=== PATIENT | male | born 1930 | race Caucasian/White ===

== ENCOUNTER → 2016-12-03 | Outpatient (CLI) | payer MEDICARE ==
[~2016-12-03] MED LIST: ACET325T14 PO; AMIO100T4 PO; AMIO200T PO; ASPI-621 PO; ASPI-770 NG; ATOR10TA PO; CLOP75TA22 PO; DUTA0.5C PO; ENOX60SY4 SQ; FINA5TAB4 PO; FURO-93 PO; FURO20TA3 PO; GADOBUTROL 7.5 MMOL/7.5 ML VIAL ONE; IPRA3AMP IPPB; LEVO750T26 PO; LISI-167 PO; LISI5TAB7 PO; METH1TAB21 PO; METO-93 PO; METO25TA35 PO; NITR0.4T SL; NITR0.4T8 SL; OMEP-110 PO; PANT20TA2 PO; POTA20PA PO; SILO4CAP PO; SIMV40TA PO; SIMV40TA3 PO; TICA90TA PO; WARF5TAB7 PO-COUM
== END | disposition home or self-care (01) ==
LOC: CFH 08:10
PROVIDERS: ATTEND Registered Nurse
DX: H81.12 Benign paroxysmal vertigo, left ear (principal); G93.89 Other specified disorders of brain
CPT/HCPCS: 70553; A9585

== ENCOUNTER 2016-12-31 05:45 | Observation (INO) | payer MEDICARE ==
[2016-12-30 13:31] VITALS: BP 119/68
[2016-12-30 14:22] LABS: BLOOD UREA NITROGEN 36 mg/dL (7-18)
[2016-12-30 14:28] LABS: ASPARTATE AMINO TRANSFERASE 10 U/L (15-37)
[~2016-12-31] VITALS: Ht 172.7 cm; Wt 77.2 kg
[~2016-12-31 05:45] MED LIST changes: -GADOBUTROL 7.5 MMOL/7.5 ML VIAL ONE
[2016-12-31] MEDS ORDERED: SODIUM CHLORIDE 0.9% 1,000 ML IV SCH (06:46)
[2016-12-31] MEDS ORDERED: LIDOCAINE 2%, 20ML ONE ×2 (07:31)
[2016-12-31] MEDS ORDERED: FENTANYL PF 100 MCG/2ML ONE (07:31)
[2016-12-31] MEDS ORDERED: MIDAZOLAM 1 MG/ML, 5ML ONE (07:31)
[2016-12-31] MEDS ORDERED: CEFAZOLIN PMX 1GM/50ML 50 ML ONE (07:32)
[2016-12-31] MEDS ORDERED: HYDROcodone/APAP 5/325 TABLET PO PRN (08:30)
[2016-12-31] MEDS: NITROGLYCERIN 0.4 MG BOTTLE (25 TABS) SL SCH (08:30)
[2016-12-31] MEDS ORDERED: ZOLPIDEM 5MG TABLET PO PRN (08:30)
[2016-12-31] MEDS: FINASTERIDE 5 MG TABLET PO SCH (09:00)
[2016-12-31] MEDS: LISINOPRIL 5 MG TABLET PO SCH (09:00)
[2016-12-31] MEDS: TAMSULOSIN 0.4 MG CAP.ER.24H PO SCH (09:00)
[2016-12-31] MEDS: SODIUM CHLORIDE FLUSH 10ML SYR IVF SCH ×2 (09:00→20:51)
[2016-12-31] MEDS: FUROSEMIDE 20 MG TABLET PO SCH (09:00)
[2016-12-31] MEDS: DUTASTERIDE 0.5 MG CAPSULE PO SCH (09:00)
[2016-12-31] MEDS: METHENAMINE HIPPURATE 1 GM TABLET PO SCH ×2 (09:00→20:51)
[2016-12-31] MEDS: AMIODARONE 200 MG TABLET PO SCH (09:00)
[2016-12-31] MEDS: OMEPRAZOLE 20 MG CAPSULE.DR PO SCH (09:00)
[2016-12-31] MEDS: TICAGRELOR 90 MG TABLET PO SCH (09:00)
[2016-12-31] MEDS: METOPROLOL SUCCINATE 50 MG TAB.ER.24H PO SCH (09:00)
[2016-12-31] MEDS: ASPIRIN 81 MG TABLET EC PO SCH (10:58)
[2016-12-31 12:15] VITALS: BP 119/71
[2016-12-31] MEDS: CEFAZOLIN PMX 1GM/50ML 50 ML IVPB SCH ×2 (15:40→23:41)
[2016-12-31 19:08] VITALS: BP 101/53
[2016-12-31] MEDS ORDERED: ATORVASTATIN 10 MG TABLET PO SCH (21:00)
[2017-01-01 01:48] VITALS: BP 114/68
[2017-01-01 07:14] VITALS: BP 103/60
[2017-01-01] MEDS ORDERED: AMIO200T42 PO (08:24)
[2017-01-01] MEDS: METOPROLOL SUCCINATE 50 MG TAB.ER.24H PO SCH (08:32)
[2017-01-01] MEDS: AMIODARONE 200 MG TABLET PO SCH (08:33)
[2017-01-01] MEDS: TICAGRELOR 90 MG TABLET PO SCH (08:33)
[2017-01-01] MEDS: ASPIRIN 81 MG TABLET EC PO SCH (08:33)
[2017-01-01] MEDS: FINASTERIDE 5 MG TABLET PO SCH (08:33)
[2017-01-01] MEDS: DUTASTERIDE 0.5 MG CAPSULE PO SCH (08:33)
[2017-01-01] MEDS: TAMSULOSIN 0.4 MG CAP.ER.24H PO SCH (08:34)
[2017-01-01] MEDS: OMEPRAZOLE 20 MG CAPSULE.DR PO SCH (08:34)
[2017-01-01] MEDS: LISINOPRIL 5 MG TABLET PO SCH (08:34)
[2017-01-01] MEDS: FUROSEMIDE 20 MG TABLET PO SCH (08:37)
[2017-01-01] MEDS: SODIUM CHLORIDE FLUSH 10ML SYR IVF SCH (08:37)
[2017-01-01] MEDS: NITROGLYCERIN 0.4 MG BOTTLE (25 TABS) SL SCH (08:38)
[2017-01-01 08:47] VITALS: BP 105/65
[2017-01-01] MEDS: METHENAMINE HIPPURATE 1 GM TABLET PO SCH (09:02)
== END 2017-01-01 10:50 | disposition home or self-care (01) ==
LOC: CACL 05:45 → ORIP 08:30 → 5SO 08:55 → DCLOUNGE 01-01 10:27
PROVIDERS: ADMIT Internal Medicine Cardiovascular Disease; ATTEND Internal Medicine Cardiovascular Disease
DX: I49.5 Sick sinus syndrome (principal); I48.91 Unspecified atrial fibrillation; I25.10 Atherosclerotic heart disease of native coronary artery without angina pectoris; I11.0 Hypertensive heart disease with heart failure; I50.9 Heart failure, unspecified; Z87.891 Personal history of nicotine dependence
CPT/HCPCS: 33208; 36415; 71010; 71020; 80053; 83880; 85025; 85610; 85730; 93005; 96365; 96375; 99152; C1779; C1785; C1892; G0378; J0690; J2250; J3010; J3490

== ENCOUNTER → 2017-06-17 | Outpatient (CLI) | payer MEDICARE ==
[~2017-06-17] MED LIST changes: +AMIO200T42 PO; +AMIO400T4 PO; -CLOP75TA22 PO; +CLOP75TA52 PO; +METO25TA91 PO; +NITR0.4T28 SL; -NITR0.4T8 SL; +POTA10TA5 PO; +TAMS0.4C2 PO
[2017-06-17 11:17] LABS: HEMATOCRIT 44.5 % (39.2-51.8); HEMOGLOBIN 14.6 g/dL (13.7-18.0); WHITE BLOOD COUNT 11.9 x10^3/uL (3.4-10)
[2017-06-17 11:31] LABS: BLOOD UREA NITROGEN 28 mg/dL (7-18)
[2017-06-17 11:35] LABS: ASPARTATE AMINO TRANSFERASE 14 U/L (15-37)
== END | disposition home or self-care (01) ==
LOC: STAR 10:03
PROVIDERS: ATTEND Urology
DX: Z01.818 Encounter for other preprocedural examination (principal); R94.31 Abnormal electrocardiogram [ECG] [EKG]; C67.9 Malignant neoplasm of bladder, unspecified; N52.01 Erectile dysfunction due to arterial insufficiency; I10 Essential (primary) hypertension; Z85.46 Personal history of malignant neoplasm of prostate
CPT/HCPCS: 36415; 80053; 81003; 85025; 87086; 93005

== ENCOUNTER → 2017-07-01 | Day surgery (SDC) | payer MEDICARE ==
[~2017-07-01] VITALS: Ht 172.7 cm; Wt 78.0 kg
[2017-07-01 10:06] VITALS: BP 110/76
== END ==
LOC: OUT 09:34
PROVIDERS: ATTEND Urology
DX: Z02.9 Encounter for administrative examinations, unspecified (principal)

== ENCOUNTER 2017-08-10 01:31 | Inpatient (IN) | payer MEDICARE ==
[~2017-08-10] VITALS: Ht 172.7 cm; Wt 78.6 kg
[2017-08-10 02:26] LABS: BASOPHILS # (AUTO) 0.01 x10^3/uL (0-0.1); BASOPHILS % (AUTO) 0 % (0-1); EOSINOPHILS # (AUTO) 0.18 x10^3/uL (0-0.4); EOSINOPHILS % (AUTO) 2 % (1-7); LYMPHOCYTES # (AUTO) 1.73 x10^3/uL (1-3.4); LYMPHOCYTES % (AUTO) 17 % (22-44); MD NO; MEAN CORPUSCULAR HEMOGLOBIN 30.8 pg (27.5-34.5); MEAN CORPUSCULAR HGB CONC 33.6 g/dL (33.2-36.2); MEAN CORPUSCULAR VOLUME 91.7 fL (81-97); MEAN PLATELET VOLUME 9.4 fL (7.4-10.4); MONOCYTES # (AUTO) 1.12 x10^3/uL (0.2-0.8); MONOCYTES % (AUTO) 11 % (2-9); NEUTROPHILS # (AUTO) 7.38 x10^3/uL (1.8-6.8); NEUTROPHILS % (AUTO) 71 % (42-75); PLATELET COUNT 225 x10^3/uL (130-400); RED CELL DISTRIBUTION WIDTH 13.3 % (9.4-14.8)
[2017-08-10] MEDS ORDERED: ASPIRIN 81 MG TABLET CHEW ONE (02:26)
[2017-08-10] MEDS ORDERED: ASPIRIN 81 MG TABLET CHEW PO ONE (02:30)
[2017-08-10 02:34] LABS: INTERNATIONAL NORMALIZED RATIO 0.98 (0.93-1.1); PROTHROMBIN TIME 10.1 Seconds (9.6-11.5)
[2017-08-10 02:39] LABS: ALBUMIN 3.3 g/dL (3.4-5.0); ANION GAP 7 mmol/L (5-15); CALCIUM 8.8 mg/dL (8.5-10.1); CHLORIDE 110 mmol/L (98-107); CREATININE 1.53 mg/dL (0.7-1.3)
[2017-08-10 02:43] LABS: TROPONIN I < 0.015 ng/mL (0.000-0.045)
[2017-08-10] MEDS ORDERED: SODIUM CHLORIDE 0.9% 1,000 ML IV SCH ×2 (03:58→14:40)
[2017-08-10] MEDS ORDERED: ONDANSETRON 2MG/ML, 2ML IVPush PRN (04:00)
[2017-08-10] MEDS ORDERED: morphine SULFATE 10 MG/ML, 1ML IVPush PRN (04:00)
[2017-08-10] MEDS ORDERED: NITROGLYCERIN 0.4 MG BOTTLE (25 TABS) SL PRN (04:00)
[2017-08-10] MEDS ORDERED: ACETAMINOPHEN 325 MG TABLET PO PRN (04:00)
[2017-08-10 04:18] VITALS: BP 146/87
[2017-08-10 05:23] VITALS: BP 134/73
[2017-08-10 07:52] VITALS: BP 134/77
[2017-08-10] MEDS: TICAGRELOR 90 MG TABLET PO SCH ×2 (08:02→23:24)
[2017-08-10] MEDS: FUROSEMIDE 20 MG TABLET PO SCH (08:03)
[2017-08-10] MEDS: AMIODARONE 200 MG TABLET PO SCH (08:03)
[2017-08-10] MEDS: POTASSIUM CHLORIDE 10 MEQ TABLET.ER PO SCH (08:03)
[2017-08-10] MEDS: TAMSULOSIN 0.4 MG CAP.ER.24H PO SCH (08:03)
[2017-08-10] MEDS: ASPIRIN 81 MG TABLET EC PO SCH (08:03)
[2017-08-10] MEDS: METOPROLOL SUCCINATE 25 MG TAB.ER.24H PO SCH (08:03)
[2017-08-10 08:10] LABS: TROPONIN I 0.019 ng/mL (0.000-0.045)
[2017-08-10] MEDS ORDERED: REGADENOSON 0.4 MG/5 ML SYRINGE ONE (08:38)
[2017-08-10 14:55] VITALS: BP 111/63
[2017-08-10 15:02] LABS: TROPONIN I < 0.015 ng/mL (0.000-0.045)
[2017-08-10 18:34] VITALS: BP 130/79
[2017-08-11 02:19] VITALS: BP 110/63
[2017-08-11 05:50] LABS: CHLORIDE 108 mmol/L (98-107)
[2017-08-11 06:05] LABS: ANION GAP 9 mmol/L (5-15); CALCIUM 8.8 mg/dL (8.5-10.1); CHOLESTEROL, TOTAL 138 mg/dL (140-239); CREATININE 1.47 mg/dL (0.7-1.3); HDL CHOL % 33 % (26-37); HDL CHOLESTEROL (DIRECT) 46 mg/dL (40-60); LDL CHOLESTEROL,CALCULATED 74 mg/dL (54-169); LDL/HDL RATIO 1.6 (0.5-3.0); TRIGLYCERIDES 91 mg/dL (50-200); VLDL CHOLESTEROL 18 mg/dL (0-25)
[2017-08-11 06:58] VITALS: BP 109/71
[2017-08-11] MEDS: ASPIRIN 81 MG TABLET EC PO SCH (09:23)
[2017-08-11] MEDS: POTASSIUM CHLORIDE 10 MEQ TABLET.ER PO SCH (09:23)
[2017-08-11] MEDS: FUROSEMIDE 20 MG TABLET PO SCH (09:23)
[2017-08-11] MEDS: TICAGRELOR 90 MG TABLET PO SCH ×2 (09:23→20:55)
[2017-08-11] MEDS: TAMSULOSIN 0.4 MG CAP.ER.24H PO SCH (09:24)
[2017-08-11] MEDS: AMIODARONE 200 MG TABLET PO SCH (09:24)
[2017-08-11] MEDS: METOPROLOL SUCCINATE 25 MG TAB.ER.24H PO SCH (09:24)
[2017-08-11] MEDS ORDERED: FENTANYL PF 100 MCG/2ML ONE (12:48)
[2017-08-11] MEDS ORDERED: MIDAZOLAM 1 MG/ML, 5ML ONE (12:48)
[2017-08-11] MEDS ORDERED: HEPARIN 1,000 UNITS/ML, 10ML ONE (12:49)
[2017-08-11] MEDS ORDERED: TICAGRELOR 90 MG TABLET ONE (12:49)
[2017-08-11] MEDS ORDERED: BIVALIRUDIN 250 MG ONE (12:49)
[2017-08-11] MEDS ORDERED: VERAPAMIL 2.5 MG/ML, 2ML ONE (12:49)
[2017-08-11] MEDS ORDERED: LIDOCAINE 2%, 20ML ONE (12:49)
[2017-08-11 15:34] VITALS: BP 98/65
[2017-08-11 19:14] VITALS: BP 121/76
[2017-08-12 03:40] VITALS: BP 124/71
[2017-08-12 07:21] VITALS: BP 103/62
[2017-08-12] MEDS: TICAGRELOR 90 MG TABLET PO SCH (08:37)
[2017-08-12] MEDS: TAMSULOSIN 0.4 MG CAP.ER.24H PO SCH (08:37)
[2017-08-12] MEDS: POTASSIUM CHLORIDE 10 MEQ TABLET.ER PO SCH (08:37)
[2017-08-12] MEDS: FUROSEMIDE 20 MG TABLET PO SCH (08:38)
[2017-08-12] MEDS: ASPIRIN 81 MG TABLET EC PO SCH (08:38)
[2017-08-12] MEDS: AMIODARONE 200 MG TABLET PO SCH (08:38)
[2017-08-12] MEDS: METOPROLOL SUCCINATE 25 MG TAB.ER.24H PO SCH (08:39)
[2017-08-12] MEDS: CLOPIDOGREL 75 MG TABLET PO SCH (10:56)
[2017-08-12] MEDS ORDERED: POTASSIUM CHLORIDE 20 MEQ TAB.ER.PRT PO ONE (11:00)
[2017-08-12] MEDS ORDERED: FUROSEMIDE 20 MG/2 ML IV ONE (11:00)
[2017-08-12 13:25] VITALS: BP 109/72
[2017-08-12 13:55] VITALS: BP 99/61
[2017-08-12 21:39] VITALS: BP 98/61
[2017-08-13 01:47] VITALS: BP 110/65
[2017-08-13 05:58] LABS: ANION GAP 8 mmol/L (5-15); CALCIUM 8.7 mg/dL (8.5-10.1); CHLORIDE 108 mmol/L (98-107)
[2017-08-13 06:03] LABS: CREATININE 1.56 mg/dL (0.7-1.3)
[2017-08-13 08:03] VITALS: BP 97/61
[2017-08-13] MEDS: ASPIRIN 81 MG TABLET EC PO SCH ×2 (09:00→10:26)
[2017-08-13] MEDS: TAMSULOSIN 0.4 MG CAP.ER.24H PO SCH ×2 (09:00→10:26)
[2017-08-13] MEDS: METOPROLOL SUCCINATE 25 MG TAB.ER.24H PO SCH (09:00)
[2017-08-13] MEDS: AMIODARONE 200 MG TABLET PO SCH ×2 (09:00→10:26)
[2017-08-13] MEDS: POTASSIUM CHLORIDE 10 MEQ TABLET.ER PO SCH (10:26)
[2017-08-13] MEDS: FUROSEMIDE 20 MG TABLET PO SCH (10:26)
[2017-08-13] MEDS: CLOPIDOGREL 75 MG TABLET PO SCH (10:27)
[2017-08-13] MEDS ORDERED: CLOP75TA PO (11:21)
== END 2017-08-13 12:40 | disposition home or self-care (01) | DRG 280 ==
LOC: ED 02:14 → EDIP 03:18 → 5SO 04:22 → DCLOUNGE 08-13 12:16
PROVIDERS: ADMIT Hospitalist; ATTEND Hospitalist
PROC: 4A023N7 Measurement of Cardiac Sampling and Pressure, Left Heart, Percutaneous Approach (ICD-10-PCS; principal; 2017-08-10)
PROC: B211YZZ Fluoroscopy of Multiple Coronary Arteries using Other Contrast (ICD-10-PCS; 2017-08-11)
PROC: B215YZZ Fluoroscopy of Left Heart using Other Contrast (ICD-10-PCS; 2017-08-11)
DX: T82.855A Stenosis of coronary artery stent, initial encounter (principal); I21.4 Non-ST elevation (NSTEMI) myocardial infarction; I50.23 Acute on chronic systolic (congestive) heart failure; R57.0 Cardiogenic shock; I13.0 Hypertensive heart and chronic kidney disease with heart failure and stage 1 through stage 4 chronic kidney disease, or unspecified chronic kidney disease; D68.69 Other thrombophilia; I25.110 Atherosclerotic heart disease of native coronary artery with unstable angina pectoris; I25.5 Ischemic cardiomyopathy; I48.0 Paroxysmal atrial fibrillation; E78.5 Hyperlipidemia, unspecified; K21.9 Gastro-esophageal reflux disease without esophagitis; N18.9 Chronic kidney disease, unspecified; N40.0 Benign prostatic hyperplasia without lower urinary tract symptoms; Z79.82 Long term (current) use of aspirin; Z85.820 Personal history of malignant melanoma of skin; Z87.891 Personal history of nicotine dependence; Z91.81 History of falling; Z95.0 Presence of cardiac pacemaker; Z95.5 Presence of coronary angioplasty implant and graft; I25.2 Old myocardial infarction; Z99.81 Dependence on supplemental oxygen; I44.0 Atrioventricular block, first degree
CPT/HCPCS: 36415; 71010; 78452; 80048; 80061; 82040; 83735; 83880; 84100; 84484; 85025; 85610; 93005; 93017; 93306; 93458; 99156; 99285; C1769; C1894; J0583; J1644; J2250; J2785; J3010; J3490; A9502; C8924; C9898; J1940; J7030; Q9967

== ENCOUNTER 2017-10-18 07:11 | Emergency (ER) | payer MEDICARE ==
[~2017-10-18] VITALS: Ht 172.7 cm; Wt 78.0 kg
[~2017-10-18 07:11] MED LIST changes: -AMIO400T4 PO; +AMIO400T5 PO; +CLOP75TA PO; +IBUP-1221 PO
[2017-10-18 07:12] VITALS: BP 120/74
[2017-10-18] MEDS ORDERED: ISOS30TA8 PO (07:56)
== END 2017-10-18 08:15 | disposition home or self-care (01) ==
LOC: ED 08:09
DX: B02.9 Zoster without complications (principal); E78.5 Hyperlipidemia, unspecified; I12.9 Hypertensive chronic kidney disease with stage 1 through stage 4 chronic kidney disease, or unspecified chronic kidney disease; N18.9 Chronic kidney disease, unspecified; K21.9 Gastro-esophageal reflux disease without esophagitis
CPT/HCPCS: 99283

== ENCOUNTER → 2018-02-15 | Outpatient (CLI) | payer MEDICARE ==
[~2018-02-15] MED LIST changes: -ASPI-770 NG; +ASPI81TA59 NG; +ISOS30TA8 PO; +WARF-36 PO-COUM; -WARF5TAB7 PO-COUM
[2018-02-15 12:38] LABS: ALBUMIN 3.5 g/dL (3.4-5.0); ANION GAP 6 mmol/L (5-15); CALCIUM 8.4 mg/dL (8.5-10.1); CHLORIDE 107 mmol/L (98-107)
[2018-02-15 12:43] LABS: BASOPHILS # (AUTO) 0.04 x10^3/uL (0-0.1); BASOPHILS % (AUTO) 0 % (0-1); EOSINOPHILS # (AUTO) 0.13 x10^3/uL (0-0.4); EOSINOPHILS % (AUTO) 1 % (1-7); LYMPHOCYTES % (AUTO) 21 % (22-44); MD NO; MEAN CORPUSCULAR HEMOGLOBIN 31.5 pg (27.5-34.5); MEAN CORPUSCULAR VOLUME 95.5 fL (81-97); MEAN PLATELET VOLUME 9.1 fL (7.4-10.4); MONOCYTES # (AUTO) 1.04 x10^3/uL (0.2-0.8); MONOCYTES % (AUTO) 11 % (2-9); NEUTROPHILS # (AUTO) 6.48 x10^3/uL (1.8-6.8); NEUTROPHILS % (AUTO) 66 % (42-75); PLATELET COUNT 294 x10^3/uL (130-400); RED CELL DISTRIBUTION WIDTH 14.6 % (9.4-14.8)
[2018-02-15 12:48] LABS: ALANINE AMINOTRANSFERASE 20 U/L (12-78); ALKALINE PHOSPHATASE 80 U/L (45-117); BILIRUBIN,TOTAL 0.3 mg/dL (0.2-1.0); CHOL/HDL RATIO 3.2; CHOLESTEROL, TOTAL 136 mg/dL (140-239); HDL CHOL % 32 % (26-37); HDL CHOLESTEROL (DIRECT) 43 mg/dL (40-60); LDL CHOLESTEROL,CALCULATED 76 mg/dL (54-169); LDL/HDL RATIO 1.8 (0.5-3.0); T4 (THYROXINE) 10.2 mcg/dL (4.5-12.1); TOTAL PROTEIN 7.3 g/dL (6.4-8.2); TRIGLYCERIDES 85 mg/dL (50-200); VLDL CHOLESTEROL 17 mg/dL (0-25)
== END | disposition home or self-care (01) ==
LOC: CFH 09:20
PROVIDERS: ATTEND Family Medicine
DX: I10 Essential (primary) hypertension (principal); E78.2 Mixed hyperlipidemia; R06.00 Dyspnea, unspecified
CPT/HCPCS: 36415; 80053; 80061; 84436; 84443; 84481; 85025

== ENCOUNTER 2018-06-27 00:04 | Emergency (ER) | payer MEDICARE ==
[~2018-06-27] VITALS: Ht 172.7 cm; Wt 82.0 kg
[~2018-06-27 00:04] MED LIST changes: -IPRA3AMP IPPB; +IPRA3AMP30 IPPB; -POTA20PA PO; +POTA20PA31 PO
[2018-06-27] MEDS ORDERED: DOCUSATE 100 MG CAPSULE ONE (00:29)
[2018-06-27] MEDS ORDERED: PINK LADY ENEMA 490 ML BOTTLE PR ONE (00:30)
[2018-06-27] MEDS ORDERED: DOCUSATE 100 MG CAPSULE PO PRN (00:30)
[2018-06-27] MEDS ORDERED: GOLYTELY 4,000ML ORAL.SOL PO ONE (00:30)
[2018-06-27 00:58] LABS: BASOPHILS # (AUTO) 0.02 x10^3/uL (0-0.1); BASOPHILS % (AUTO) 0 % (0-1); EOSINOPHILS # (AUTO) 0.14 x10^3/uL (0-0.4); EOSINOPHILS % (AUTO) 2 % (1-7); LYMPHOCYTES # (AUTO) 2.01 x10^3/uL (1-3.4); LYMPHOCYTES % (AUTO) 22 % (22-44); MD NO; MEAN CORPUSCULAR HEMOGLOBIN 31.2 pg (27.5-34.5); MEAN CORPUSCULAR HGB CONC 33.2 g/dL (33.2-36.2); MEAN PLATELET VOLUME 9.6 fL (7.4-10.4); MONOCYTES # (AUTO) 1.01 x10^3/uL (0.2-0.8); MONOCYTES % (AUTO) 11 % (2-9); NEUTROPHILS # (AUTO) 5.94 x10^3/uL (1.8-6.8); NEUTROPHILS % (AUTO) 65 % (42-75); PLATELET COUNT 222 x10^3/uL (130-400); RED BLOOD COUNT 4.27 x10^6/uL (4.38-5.82); RED CELL DISTRIBUTION WIDTH 13.3 % (9.4-14.8)
[2018-06-27 01:08] LABS: ALANINE AMINOTRANSFERASE 19 U/L (12-78); ALBUMIN 3.5 g/dL (3.4-5.0); ANION GAP 10 mmol/L (5-15); CALCIUM 8.7 mg/dL (8.5-10.1); CHLORIDE 107 mmol/L (98-107); CREATININE 1.53 mg/dL (0.7-1.3)
[2018-06-27 01:11] LABS: ALKALINE PHOSPHATASE 73 U/L (45-117); BILIRUBIN,TOTAL 0.3 mg/dL (0.2-1.0)
[2018-06-27 02:42] VITALS: BP 110/74
== END 2018-06-27 02:44 | disposition home or self-care (01) ==
LOC: ED 02:35
DX: K59.00 Constipation, unspecified (principal); Z90.49 Acquired absence of other specified parts of digestive tract; K21.9 Gastro-esophageal reflux disease without esophagitis; I25.2 Old myocardial infarction; E78.5 Hyperlipidemia, unspecified; I25.10 Atherosclerotic heart disease of native coronary artery without angina pectoris; I11.9 Hypertensive heart disease without heart failure
CPT/HCPCS: 36415; 80053; 83605; 85025; 99284

== ENCOUNTER → 2018-10-19 | Outpatient (CLI) | payer MEDICARE ==
[~2018-10-19] MED LIST changes: -ASPI-621 PO; +ASPI81TA45 PO; +GABA800T5 PO; +LEVO25TA4 PO; +LISI2.5T PO
== END | disposition home or self-care (01) ==
LOC: CFH 09:11
PROVIDERS: ATTEND Family Medicine
DX: N26.1 Atrophy of kidney (terminal) (principal); R33.9 Retention of urine, unspecified; R14.0 Abdominal distension (gaseous)
CPT/HCPCS: 76700; 76857

== ENCOUNTER → 2019-01-25 | Outpatient (CLI) | payer MEDICARE ==
[~2019-01-25] MED LIST changes: -NITR0.4T SL; +NITR0.4T41 SL
== END | disposition home or self-care (01) ==
LOC: CFH 07:53
PROVIDERS: ATTEND Urology
DX: K82.4 Cholesterolosis of gallbladder (principal); K76.89 Other specified diseases of liver
CPT/HCPCS: 76700

== ENCOUNTER 2019-01-30 05:49 | Emergency (ER) | payer MEDICARE ==
[~2019-01-30] VITALS: Ht 172.7 cm; Wt 81.9 kg
--- NOTE | 2019-01-30 06:00 | NUR ---
PT IN [facility]. CARLOS ENRIQUE CHOE AT BS. PT EDUCATED ON ER PROCESS AND POC AND VERBALIZES UNDERSTANDING. CALL LIGHT IS WITHIN REACH AT THIS TIME.
--- NOTE | 2019-01-30 06:26 | NUR ---
PT BACK TO ROOM FROM [facility] VIA JT.
--- NOTE | 2019-01-30 06:41 | NUR ---
REPORT OF PT TO JIN LARA. ALL QUESTIONS ANSWERED.
[2019-01-30] MEDS ORDERED: PINK LADY ENEMA 490 ML BOTTLE PR STA (06:45)
[2019-01-30 07:02] VITALS: BP 138/78
--- NOTE | 2019-01-30 07:35 | NUR ---
ASSISTING PT WITH ENEMA AT BEDSIDE.
--- NOTE | 2019-01-30 08:39 | NUR ---
ENEMA SUCCESSFUL. PT HAD LARGE BM.
--- NOTE | 2019-01-30 08:41 | NUR ---
Patient/Caregiver given discharge instructions and they have confirmed that they understand the instructions. Patient ambulatory with steady gait. Pt left with all personal belongings.
== END 2019-01-30 08:51 | disposition home or self-care (01) ==
LOC: ED 08:16
DX: K59.00 Constipation, unspecified (principal); I25.10 Atherosclerotic heart disease of native coronary artery without angina pectoris; I12.9 Hypertensive chronic kidney disease with stage 1 through stage 4 chronic kidney disease, or unspecified chronic kidney disease; N18.9 Chronic kidney disease, unspecified; K21.9 Gastro-esophageal reflux disease without esophagitis; I25.2 Old myocardial infarction; E78.5 Hyperlipidemia, unspecified; Z90.49 Acquired absence of other specified parts of digestive tract; Z95.0 Presence of cardiac pacemaker; Z79.899 Other long term (current) drug therapy
CPT/HCPCS: 74021; 99284

== ENCOUNTER 2019-06-27 02:20 | Emergency (ER) | payer MEDICARE ==
[~2019-06-27] VITALS: Ht 172.7 cm; Wt 81.0 kg
[~2019-06-27 02:20] MED LIST changes: +APIX2.5T PO; +DULO30CA2 PO
--- NOTE | 2019-06-27 02:41 | NUR ---
Patient wheeled into room by tech. RN to bedside, patient disrobing and able to get gown on with minor assistance. Patient complains of fall previous day, still some tenderness with mobility in lower right back. RN doesn't appreciate any echymosis which patient and son states is their concern because of patient being on a "blood thinner." Patient reports no difficulty breathing, no shortness of breath, appreciate breath sounds on right, diminished but equal to left. Awaiting assessment by provider.
[2019-06-27] MEDS ORDERED: MORPHINE SULFATE 4 MG/ML, 1ML IVPush PRN (03:00)
[2019-06-27] MEDS ORDERED: ONDANSETRON 2MG/ML, 2ML IVPush ONE (03:00)
[2019-06-27 03:18] LABS: MEAN CORPUSCULAR HEMOGLOBIN 31.1 pg (27.5-34.5); MEAN CORPUSCULAR VOLUME 94.3 fL (81-97); MEAN PLATELET VOLUME 10.6 fL (7.4-10.4); PLATELET COUNT 152 x10^3/uL (130-400); RED BLOOD COUNT 4.01 x10^6/uL (4.38-5.82); RED CELL DISTRIBUTION WIDTH 16.6 % (9.4-14.8)
[2019-06-27 03:27] LABS: ALBUMIN 3.3 g/dL (3.4-5.0); ANION GAP 6 mmol/L (5-15); CALCIUM 8.2 mg/dL (8.5-10.1); CHLORIDE 110 mmol/L (98-107); CREATININE 1.88 mg/dL (0.7-1.3)
[2019-06-27 03:30] LABS: TROPONIN I 0.028 ng/mL (0.000-0.045)
[2019-06-27] MEDS ORDERED: ONDANSETRON 2MG/ML, 2ML ONE (03:31)
[2019-06-27] MEDS ORDERED: MORPHINE SULFATE 4 MG/ML, 1ML ONE (03:32)
[2019-06-27 03:57] LABS: BASOPHILS # (AUTO) 0.01 x10^3/uL (0-0.1); BASOPHILS % (AUTO) 0 % (0-1); EOSINOPHILS # (AUTO) 0.05 x10^3/uL (0-0.4); EOSINOPHILS % (AUTO) 1 % (1-7); LYMPHOCYTES # (AUTO) 1.02 x10^3/uL (1-3.4); LYMPHOCYTES % (AUTO) 11 % (22-44); MD SCAN; MONOCYTES # (AUTO) 1.46 x10^3/uL (0.2-0.8); MONOCYTES % (AUTO) 15 % (2-9); NEUTROPHILS # (AUTO) 7.15 x10^3/uL (1.8-6.8); NEUTROPHILS % (AUTO) 74 % (42-75)
--- NOTE | 2019-06-27 04:21 | NUR ---
Patient returned from ct scan. Patient resting comfortably, reattached to monitor, spo2 drops to mid 80%'s. Placed on nasal cannula o2. Explained to caregiver (son) at bedside drop likely related to opiate pain medications. Son verbalized understanding. Awaiting read on ct results.
[2019-06-27 04:39] VITALS: BP 104/56
[2019-06-27] MEDS ORDERED: OMNIPAQUE 350 MG/ML, 100ML BOTTLE ONE (04:48)
== END 2019-06-27 05:42 | disposition home or self-care (01) ==
LOC: ED 04:50
DX: G89.11 Acute pain due to trauma (principal); M54.5 Low back pain; M54.6 Pain in thoracic spine; I12.9 Hypertensive chronic kidney disease with stage 1 through stage 4 chronic kidney disease, or unspecified chronic kidney disease; N18.9 Chronic kidney disease, unspecified; I25.2 Old myocardial infarction; I48.0 Paroxysmal atrial fibrillation; E78.5 Hyperlipidemia, unspecified; I25.10 Atherosclerotic heart disease of native coronary artery without angina pectoris; Z87.891 Personal history of nicotine dependence; W18.30XA Fall on same level, unspecified, initial encounter; Y93.89 Activity, other specified; Y92.89 Other specified places as the place of occurrence of the external cause; Y99.8 Other external cause status
CPT/HCPCS: 36415; 71260; 72128; 72131; 74177; 80048; 82040; 84484; 85025; 93005; 96374; 96375; 99284; J2270; J2405; Q9967

== ENCOUNTER 2019-06-29 09:32 | Emergency (ER) | payer MEDICARE ==
[~2019-06-29] VITALS: Ht 172.7 cm; Wt 77.3 kg
--- NOTE | 2019-06-29 09:40 | NUR ---
BIB [facility] FOR C/O CONTINUED BACK PAIN AFTER PT HAD GLF 4 DAYS AGO. WAS SEEN FOR GLF THEN. ALL XR'S NEGATIVE. 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 PT IC CONCERNED FOR PNA. COUGHING UP GREEN MUCOUS STARTED 1 WK AGO. MONITORS APPLIED. WARM BLANKET PROVIDED. ERP DR. SHELL AT BEDSIDE.
[2019-06-29] MEDS ORDERED: HYDROcodone/APAP 5/325 TABLET PO ONE (10:00)
[2019-06-29] MEDS ORDERED: HYDROcodone/APAP 5/325 TABLET ONE (10:07)
[2019-06-29 10:17] LABS: BASOPHILS # (AUTO) 0.02 x10^3/uL (0-0.1); BASOPHILS % (AUTO) 0 % (0-1); EOSINOPHILS # (AUTO) 0.02 x10^3/uL (0-0.4); EOSINOPHILS % (AUTO) 0 % (1-7); LYMPHOCYTES # (AUTO) 0.68 x10^3/uL (1-3.4); LYMPHOCYTES % (AUTO) 10 % (22-44); MD NO; MEAN CORPUSCULAR HEMOGLOBIN 31.2 pg (27.5-34.5); MEAN CORPUSCULAR HGB CONC 32.8 g/dL (33.2-36.2); MEAN CORPUSCULAR VOLUME 95.3 fL (81-97); MEAN PLATELET VOLUME 10.1 fL (7.4-10.4); MONOCYTES # (AUTO) 0.95 x10^3/uL (0.2-0.8); MONOCYTES % (AUTO) 13 % (2-9); NEUTROPHILS # (AUTO) 5.54 x10^3/uL (1.8-6.8); NEUTROPHILS % (AUTO) 77 % (42-75); PLATELET COUNT 145 x10^3/uL (130-400); RED BLOOD COUNT 4.09 x10^6/uL (4.38-5.82)
--- NOTE | 2019-06-29 10:26 | NUR ---
[facility] MEDICATED PER OCT.
[2019-06-29 10:30] LABS: ALANINE AMINOTRANSFERASE 16 U/L (12-78); ALBUMIN 3.3 g/dL (3.4-5.0); ANION GAP 7 mmol/L (5-15); CHLORIDE 109 mmol/L (98-107); CREATININE 2.12 mg/dL (0.7-1.3)
[2019-06-29 10:32] LABS: ALKALINE PHOSPHATASE 89 U/L (45-117); BILIRUBIN,TOTAL 0.6 mg/dL (0.2-1.0); TOTAL PROTEIN 7.1 g/dL (6.4-8.2)
[2019-06-29 10:49] VITALS: BP 120/66
--- NOTE | 2019-06-29 10:50 | NUR ---
PT RESTING ON GURNEY. NADN. BEEBE. PT CHART REVIEWED AND PLACED FOR RECHECK.
--- NOTE | 2019-06-29 11:06 | NUR ---
PT AMBULATORY TO RESTROOM W/ STEADY GAIT. PT VERBALIZES IMPROVEMENT IN PAIN. ERP DR. SHELL NOTIFIED.
== END 2019-06-29 11:51 | disposition home or self-care (01) ==
LOC: ED 09:40
DX: S29.012A Strain of muscle and tendon of back wall of thorax, initial encounter (principal); S20.229A Contusion of unspecified back wall of thorax, initial encounter; I12.9 Hypertensive chronic kidney disease with stage 1 through stage 4 chronic kidney disease, or unspecified chronic kidney disease; N18.9 Chronic kidney disease, unspecified; K21.9 Gastro-esophageal reflux disease without esophagitis; I48.91 Unspecified atrial fibrillation; I25.2 Old myocardial infarction; E78.00 Pure hypercholesterolemia, unspecified; I25.10 Atherosclerotic heart disease of native coronary artery without angina pectoris; Z95.0 Presence of cardiac pacemaker; Z87.891 Personal history of nicotine dependence; Z90.89 Acquired absence of other organs; Z95.1 Presence of aortocoronary bypass graft
CPT/HCPCS: 36415; 80053; 85025; 99283

== ENCOUNTER 2019-07-01 08:04 | Emergency (ER) | payer MEDICARE ==
[~2019-07-01] VITALS: Ht 172.7 cm; Wt 77.0 kg
--- NOTE | 2019-07-01 08:38 | NUR ---
THIS IS AN 89 YO MALE COMING IN FOR CONSTIPATION X7 DAYS. PATIENT WAS SEEN HERE ON THURSDAY FOR BACK PAIN POST MGLF. WAS SENT HOME WITH RX OPIOID PAIN MEDICATION. PATIENT HAS ABDOMINAL DISTENTION, NO PAIN OR TENDERNESS DETECTED. PATIENT HAS EXTENSIVE MEDICAL HX, AND HERNIA REPAIRS. 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 PATIENT DENIES FURTHER NEEDS AT THIS TIME.
[2019-07-01] MEDS ORDERED: MAGNESIUM CITRATE 300ML ORAL SOL PO ONE (09:00)
[2019-07-01] MEDS ORDERED: METHYLNALTREXONE 12 MG/0.6 ML SYR SQ ONE ×2 (09:00→09:03)
[2019-07-01] MEDS ORDERED: PLEASE ENTER HEIGHT AND WEIGHT MC SCH (09:00)
[2019-07-01] MEDS ORDERED: MAGNESIUM CITRATE 300ML ORAL SOL ONE (09:03)
--- NOTE | 2019-07-01 09:38 | NUR ---
LATE ENTRY: PATIENT TO CT AT 0910.
--- NOTE | 2019-07-01 09:39 | NUR ---
PATIENT BACK FROM CT
--- NOTE | 2019-07-01 09:51 | NUR ---
MEDICATED PT PER EMAR, AMBULATED PT TO COMMODE PER PT REQUEST. CALL LIGHT IN REACH. DENIES ANY FURTHER NEEDS AT THIS TIME.
--- NOTE | 2019-07-01 11:14 | NUR ---
WATER WATER SOAP ENEMA GIVEN. NO HARD STOOL NOTICED IN COLON
[2019-07-01 12:10] VITALS: BP 126/71
== END 2019-07-01 12:12 | disposition home or self-care (01) ==
LOC: ED 09:07
DX: K59.00 Constipation, unspecified (principal); K21.9 Gastro-esophageal reflux disease without esophagitis; I25.2 Old myocardial infarction; E78.5 Hyperlipidemia, unspecified; I25.10 Atherosclerotic heart disease of native coronary artery without angina pectoris; I11.9 Hypertensive heart disease without heart failure; Z95.0 Presence of cardiac pacemaker; Z90.49 Acquired absence of other specified parts of digestive tract; Z95.1 Presence of aortocoronary bypass graft; Z87.891 Personal history of nicotine dependence
CPT/HCPCS: 74022; 96372; 99284

== ENCOUNTER → 2019-10-25 | Outpatient (CLI) | payer MEDICARE ==
[~2019-10-25] MED LIST changes: +SIMV40TA20 PO; -SIMV40TA3 PO
== END | disposition home or self-care (01) ==
LOC: RAD 09:14
PROVIDERS: ATTEND Family Medicine
DX: M16.0 Bilateral primary osteoarthritis of hip (principal); M19.012 Primary osteoarthritis, left shoulder; M25.712 Osteophyte, left shoulder
CPT/HCPCS: 73523

== ENCOUNTER 2019-11-12 07:26 | Inpatient (IN) | payer MEDICARE ==
[~2019-11-12] VITALS: Ht 162.6 cm; Wt 80.0 kg
--- NOTE | 2019-11-12 08:06 | NUR ---
PT BROUGHT BCK FROM TRIAGE WITH CHIEF COMPALAINT OF SOB AND CONSTIPATION STARTING AT 230 AM. PT IS ALERT, ORIENTED, WARM AND DRY. DENIES CP.
--- NOTE | 2019-11-12 08:45 | NUR ---
REPORT FROM JIN GARCIA.
[2019-11-12 09:06] LABS: BASOPHILS # (AUTO) 0.02 x10^3/uL (0-0.1); BASOPHILS % (AUTO) 0 % (0-1); EOSINOPHILS % (AUTO) 1 % (1-7); LYMPHOCYTES # (AUTO) 1.13 x10^3/uL (1-3.4); LYMPHOCYTES % (AUTO) 10 % (22-44); MD NO; MEAN CORPUSCULAR HEMOGLOBIN 30.8 pg (27.5-34.5); MEAN CORPUSCULAR HGB CONC 32.1 g/dL (33.2-36.2); MEAN PLATELET VOLUME 10.8 fL (7.4-10.4); MONOCYTES # (AUTO) 1.03 x10^3/uL (0.2-0.8); MONOCYTES % (AUTO) 9 % (2-9); NEUTROPHILS # (AUTO) 9.23 x10^3/uL (1.8-6.8); NEUTROPHILS % (AUTO) 80 % (42-75); PLATELET COUNT 163 x10^3/uL (130-400); RED BLOOD COUNT 4.94 x10^6/uL (4.38-5.82)
[2019-11-12 09:16] LABS: ALBUMIN 3.2 g/dL (3.4-5.0); ANION GAP 7 mmol/L (5-15); CHLORIDE 115 mmol/L (98-107)
[2019-11-12 09:21] LABS: ALANINE AMINOTRANSFERASE 87 U/L (12-78); ALKALINE PHOSPHATASE 103 U/L (45-117); BILIRUBIN,TOTAL 0.6 mg/dL (0.2-1.0); CREATININE 1.66 mg/dL (0.7-1.3); TOTAL PROTEIN 6.2 g/dL (6.4-8.2); TROPONIN I 0.028 ng/mL (0.000-0.045)
--- NOTE | 2019-11-12 09:21 | NUR ---
Pushpa RN note: This RN entered pt room as O2 sat was 69%. Pt was sleeping when this RN entered room, awakened easily to his name being called. Pt encouraged to take deep breaths and his O2 via NC was increased to 6L. Pt's O2 say remained below 90%. Pt placed on oxymask. Pt's O2 sat increased to 100% on 6L. Pt denies pain or resp distress, remains dozing in bed, NADN, denies needs.
--- NOTE | 2019-11-12 09:24 | NUR ---
Pushpa RN note: Primary RN made aware of pt condition and interventions.
[2019-11-12] MEDS ORDERED: FURO20TA3 PO (10:35)
[2019-11-12] MEDS ORDERED: TAMS-11 PO ×2 (10:35→15:17)
--- NOTE | 2019-11-12 10:38 | NUR ---
ATTEMPTED TO COMPLETE MED REQ. PT HAS TWO DIFFERING MED LISTS IN HIS WALLET, BOTH ARE DIFFERENT FROM WHAT IS IN OUR SYSTEM FROM PAST ADMISSIONS. SOME MEDICATIONS ABLE TO BE UPDATED, BUT SOME PT IS UNSURE OF. PT STATES THAT HIS PRIMARY CARE HAS THE FULLY UPDATED LIST, DR KINGSLEY.
--- NOTE | 2019-11-12 11:05 | NUR ---
REPORT TO JIN GRULLON.
[2019-11-12 11:42] VITALS: BP 134/87
[2019-11-12] MEDS ORDERED: morphine SULFATE 10 MG/ML, 1ML IVPush PRN (12:30)
[2019-11-12] MEDS ORDERED: hydrALAzine 20 MG/ML, 1ML IVPush PRN (12:30)
[2019-11-12] MEDS ORDERED: LABETALOL 5MG/ML, 20ML IVPush PRN (12:30)
[2019-11-12] MEDS ORDERED: ACETAMINOPHEN 325 MG TABLET PO PRN (12:30)
[2019-11-12] MEDS ORDERED: NITROGLYCERIN 0.4 MG BOTTLE (25 TABS) SL PRN (12:30)
[2019-11-12 12:37] VITALS: BP 136/91
[2019-11-12] MEDS: LEVOTHYROXINE 25 MCG TABLET PO SCH (12:48)
[2019-11-12] MEDS: ISOSORBIDE MONONITRATE ER 30 MG TABLET PO SCH (12:49)
[2019-11-12] MEDS: DULOXETINE 30 MG CAPSULE.DR PO SCH (12:49)
[2019-11-12] MEDS: FINASTERIDE 5 MG TABLET PO SCH (13:00)
[2019-11-12] MEDS ORDERED: POLYETHYLENE GLYCOL 17 GM PACKET PO PRN (13:00)
[2019-11-12 13:39] LABS: INTERNATIONAL NORMALIZED RATIO 1.05 (0.93-1.1); PROTHROMBIN TIME 11.1 Seconds (9.6-11.5)
[2019-11-12 13:44] LABS: TROPONIN I 0.025 ng/mL (0.000-0.045)
[2019-11-12 14:04] LABS: FREE T4 (FREE THYROXINE) 1.39 ng/dL (0.76-1.46)
[2019-11-12] MEDS ORDERED: GABA600T14 PO (15:17)
[2019-11-12] MEDS ORDERED: LIDO700A20 TD (15:17)
[2019-11-12] MEDS ORDERED: METO25TA91 PO (15:17)
[2019-11-12] MEDS ORDERED: PREG75CA PO (15:17)
[2019-11-12] MEDS: FUROSEMIDE 40 MG/4 ML IV SCH (17:04)
[2019-11-12] MEDS: CARVEDILOL 3.125 MG TABLET PO SCH (17:53)
[2019-11-12] MEDS ORDERED: FAMOTIDINE 20 MG TABLET PO SCH (21:00)
[2019-11-12] MEDS ORDERED: MAGNESIUM HYDROXIDE 8%, 30ML UDC PO SCH (21:00)
[2019-11-12] MEDS ORDERED: ATORVASTATIN 40 MG TABLET PO SCH (21:00)
[2019-11-12 21:47] VITALS: BP 110/67
[2019-11-12] MEDS: APIXABAN 2.5 MG TABLET PO SCH (21:49)
[2019-11-12] MEDS: SENNA/DOCUSATE TABLET PO SCH (21:49)
[2019-11-13 01:16] VITALS: BP 110/68
[2019-11-13 02:05] LABS: MEAN CORPUSCULAR HEMOGLOBIN 30.5 pg (27.5-34.5); MEAN CORPUSCULAR HGB CONC 32.3 g/dL (33.2-36.2); MEAN CORPUSCULAR VOLUME 94.6 fL (81-97); PLATELET COUNT 149 x10^3/uL (130-400); RED BLOOD COUNT 4.37 x10^6/uL (4.38-5.82); RED CELL DISTRIBUTION WIDTH 14.8 % (9.4-14.8)
[2019-11-13 02:12] LABS: ALANINE AMINOTRANSFERASE 60 U/L (12-78); ALBUMIN 2.8 g/dL (3.4-5.0); ANION GAP 7 mmol/L (5-15); CALCIUM 8.1 mg/dL (8.5-10.1); CHLORIDE 113 mmol/L (98-107)
[2019-11-13 02:14] LABS: ALKALINE PHOSPHATASE 83 U/L (45-117); BILIRUBIN,TOTAL 0.7 mg/dL (0.2-1.0); TOTAL PROTEIN 5.5 g/dL (6.4-8.2)
[2019-11-13 02:27] LABS: BASOPHILS # (AUTO) 0.08 x10^3/uL (0-0.1); BASOPHILS % (AUTO) 1 % (0-1); EOSINOPHILS # (AUTO) 0.09 x10^3/uL (0-0.4); EOSINOPHILS % (AUTO) 1 % (1-7); LYMPHOCYTES % (AUTO) 18 % (22-44); MD SCAN; MONOCYTES # (AUTO) 0.89 x10^3/uL (0.2-0.8); MONOCYTES % (AUTO) 9 % (2-9); NEUTROPHILS # (AUTO) 6.98 x10^3/uL (1.8-6.8); NEUTROPHILS % (AUTO) 72 % (42-75)
[2019-11-13 02:28] LABS: TROPONIN I 0.029 ng/mL (0.000-0.045)
[2019-11-13 05:21] VITALS: BP 119/74
[2019-11-13] MEDS: CARVEDILOL 3.125 MG TABLET PO SCH (05:24)
[2019-11-13] MEDS ORDERED: ASPIRIN 325 MG TABLET EC PO SCH (06:00)
[2019-11-13 06:30] VITALS: BP 112/68
[2019-11-13] MEDS: FUROSEMIDE 40 MG/4 ML IV SCH (08:26)
[2019-11-13] MEDS: LEVOTHYROXINE 25 MCG TABLET PO SCH (08:26)
[2019-11-13] MEDS ORDERED: TAMSULOSIN 0.4 MG CAP.ER.24H PO SCH (09:00)
[2019-11-13] MEDS ORDERED: OMEPRAZOLE 20 MG CAPSULE.DR PO SCH (09:00)
[2019-11-13] MEDS ORDERED: TEMPLATE NON-FORMULARY MED. (Lisinopril** 2.5 MG) PO SCH (09:00)
[2019-11-13] MEDS ORDERED: LISINOPRIL 5 MG TABLET PO SCH (09:00)
[2019-11-13] MEDS ORDERED: POTASSIUM CHLORIDE 10 MEQ TABLET.ER PO SCH (09:00)
[2019-11-13] MEDS ORDERED: ACETAMINOPHEN 325 MG TABLET PO PRN (09:30)
[2019-11-13] MEDS: APIXABAN 2.5 MG TABLET PO SCH (09:48)
[2019-11-13] MEDS: SENNA/DOCUSATE TABLET PO SCH (09:48)
[2019-11-13] MEDS: ISOSORBIDE MONONITRATE ER 30 MG TABLET PO SCH (09:48)
[2019-11-13] MEDS: DULOXETINE 30 MG CAPSULE.DR PO SCH (09:48)
[2019-11-13] MEDS ORDERED: LISINOPRIL 5 MG TABLET ONE (09:51)
[2019-11-13] MEDS: FINASTERIDE 5 MG TABLET PO SCH (10:53)
[2019-11-13 12:55] VITALS: BP 115/77
[2019-11-13] MEDS ORDERED: ACID1TAB7 PO ×2 (14:04)
[2019-11-13] MEDS ORDERED: ACID1TAB3 PO (14:04)
[2019-11-13] MEDS ORDERED: POTA10TA5 PO ×2 (14:04)
[2019-11-13] MEDS ORDERED: ATOR40TA78 PO (14:04)
[2019-11-13] MEDS ORDERED: CARV3.1212 PO (14:04)
[2019-11-13] MEDS ORDERED: NITR0.4T28 SL (14:04)
[2019-11-13] MEDS ORDERED: ISOS30TA8 PO (14:04)
[2019-11-13] MEDS ORDERED: LISI5TAB7 PO (14:04)
[2019-11-13] MEDS ORDERED: SPIR25TA5 PO (14:18)
[2019-11-13] MEDS ORDERED: LACTOBACILLUS CHEW TABLET PO SCH ×2 (16:00)
[2019-11-13] MEDS ORDERED: FUROSEMIDE 40 MG TABLET PO SCH (21:00)
== END 2019-11-13 19:48 | disposition home or self-care (01) | DRG 291 ==
LOC: ED 09:33 → EDIP 09:34 → ED 09:52 → 5SO 11:31
PROVIDERS: ADMIT Internal Medicine; ATTEND Internal Medicine
DX: I13.0 Hypertensive heart and chronic kidney disease with heart failure and stage 1 through stage 4 chronic kidney disease, or unspecified chronic kidney disease (principal); I50.43 Acute on chronic combined systolic (congestive) and diastolic (congestive) heart failure; D68.69 Other thrombophilia; K59.00 Constipation, unspecified; E03.9 Hypothyroidism, unspecified; E78.5 Hyperlipidemia, unspecified; G47.30 Sleep apnea, unspecified; I25.10 Atherosclerotic heart disease of native coronary artery without angina pectoris; I25.5 Ischemic cardiomyopathy; K76.1 Chronic passive congestion of liver; N18.3 Chronic kidney disease, stage 3 (moderate); K21.9 Gastro-esophageal reflux disease without esophagitis; N40.0 Benign prostatic hyperplasia without lower urinary tract symptoms; I48.91 Unspecified atrial fibrillation; R07.89 Other chest pain; Z66 Do not resuscitate; Z82.49 Family history of ischemic heart disease and other diseases of the circulatory system; I25.2 Old myocardial infarction; Z95.5 Presence of coronary angioplasty implant and graft; Z79.899 Other long term (current) drug therapy
CPT/HCPCS: 36415; 74022; 80053; 83880; 84439; 84443; 84484; 85025; 85610; 85730; 93005; 93306; 99285; G0378; J1940

== ENCOUNTER 2019-12-22 20:05 | Emergency (ER) | payer MEDICARE ==
[~2019-12-22] VITALS: Ht 167.6 cm; Wt 75.0 kg
[~2019-12-22 20:05] MED LIST changes: +ACID1TAB3 PO; +ACID1TAB7 PO; +ATOR40TA78 PO; +CARV3.1212 PO; +GABA600T14 PO; +LIDO700A20 TD; +PREG75CA PO; +SPIR25TA5 PO; +TAMS-11 PO
--- NOTE | 2019-12-22 20:29 | NUR ---
PT TO ROOM 27 PER WHEELCHAIR. PT C/O DIZZINESS X2 DAYS. PT HAS BEEN FEELING WEAK, NO APPETITE AND NO THIRST. PT IS A/O X3, NO S/SX OF STROKE. [place] WITH BILATERAL HEARING AIDS. PT WORN OUT FROM NEW [employer]. PT PLACED ON MONITOR, GIVEN CALL LIGHT, OFFERED WARM BLANKETS, AND SIDE RAILS UP.
--- NOTE | 2019-12-22 20:59 | NUR ---
Report received from JIN Marie. This RN to assume care.
--- NOTE | 2019-12-22 21:12 | NUR ---
Contacted [employer] for interrogation of patient's pacemaker. Advised that the local rep will be in contact.
[2019-12-22 21:28] LABS: BASOPHILS # (AUTO) 0.05 x10^3/uL (0-0.1); BASOPHILS % (AUTO) 1 % (0-1); EOSINOPHILS # (AUTO) 0.09 x10^3/uL (0-0.4); EOSINOPHILS % (AUTO) 1 % (1-7); LYMPHOCYTES % (AUTO) 12 % (22-44); MD NO; MEAN CORPUSCULAR HEMOGLOBIN 30.7 pg (27.5-34.5); MEAN CORPUSCULAR HGB CONC 33.2 g/dL (33.2-36.2); MEAN CORPUSCULAR VOLUME 92.6 fL (81-97); MEAN PLATELET VOLUME 10.8 fL (7.4-10.4); MONOCYTES % (AUTO) 9 % (2-9); NEUTROPHILS # (AUTO) 8.07 x10^3/uL (1.8-6.8); NEUTROPHILS % (AUTO) 78 % (42-75); PLATELET COUNT 169 x10^3/uL (130-400); RED BLOOD COUNT 4.72 x10^6/uL (4.38-5.82); RED CELL DISTRIBUTION WIDTH 15.2 % (9.4-14.8)
[2019-12-22 21:37] LABS: ALANINE AMINOTRANSFERASE 30 U/L (12-78); ALBUMIN 3.3 g/dL (3.4-5.0); ANION GAP 8 mmol/L (5-15); CALCIUM 9.2 mg/dL (8.5-10.1); CHLORIDE 109 mmol/L (98-107); CREATININE 1.42 mg/dL (0.7-1.3)
[2019-12-22 21:40] LABS: ALKALINE PHOSPHATASE 102 U/L (45-117); BILIRUBIN,TOTAL 0.7 mg/dL (0.2-1.0); TOTAL PROTEIN 6.7 g/dL (6.4-8.2)
[2019-12-22 21:54] VITALS: BP 139/84
== END 2019-12-22 22:16 | disposition home or self-care (01) ==
LOC: ED 20:25
DX: R00.2 Palpitations (principal); R42 Dizziness and giddiness; Z95.0 Presence of cardiac pacemaker
CPT/HCPCS: 36415; 71045; 80053; 85025; 93005; 99285

== ENCOUNTER 2020-01-17 19:19 | Emergency (ER) | payer MEDICARE ==
[~2020-01-17] VITALS: Ht 172.7 cm; Wt 76.7 kg
--- NOTE | 2020-01-17 20:47 | NUR ---
PT GIVEN ENEMA AND ATTEMPTING TO USE COMMODE AT THIS TIME.
--- NOTE | 2020-01-17 21:33 | NUR ---
PT HAD LARGE BOWEL MOVEMENT AFTER ENEMA. PT READY FOR D/C.
[2020-01-17 21:41] VITALS: BP 146/72
== END 2020-01-17 21:43 | disposition home or self-care (01) ==
LOC: ED 21:00
DX: K56.41 Fecal impaction (principal); I13.0 Hypertensive heart and chronic kidney disease with heart failure and stage 1 through stage 4 chronic kidney disease, or unspecified chronic kidney disease; N18.9 Chronic kidney disease, unspecified; I50.9 Heart failure, unspecified; I48.0 Paroxysmal atrial fibrillation; K21.9 Gastro-esophageal reflux disease without esophagitis; E78.5 Hyperlipidemia, unspecified
CPT/HCPCS: 99282; 99284

== ENCOUNTER 2020-01-30 08:23 | Outpatient (CLI) | payer MEDICARE ==
[~2020-01-30 08:23] MED LIST changes: +REGADENOSON 0.4 MG/5 ML SYRINGE ONE
== END 2020-01-30 23:59 | disposition home or self-care (01) ==
LOC: CFH 08:23
PROVIDERS: ATTEND Registered Nurse
DX: I21.19 ST elevation (STEMI) myocardial infarction involving other coronary artery of inferior wall (principal); I42.9 Cardiomyopathy, unspecified; R29.898 Other symptoms and signs involving the musculoskeletal system
CPT/HCPCS: 78452; 93017; A9502; J2785

== ENCOUNTER → 2020-02-10 | Outpatient (CLI) | payer MEDICARE ==
[~2020-02-10] MED LIST changes: -REGADENOSON 0.4 MG/5 ML SYRINGE ONE
[2020-02-10 08:06] LABS: ALANINE AMINOTRANSFERASE 34 U/L (12-78); ALBUMIN 3.4 g/dL (3.4-5.0); ANION GAP 5 mmol/L (5-15); CALCIUM 8.5 mg/dL (8.5-10.1); CHLORIDE 111 mmol/L (98-107)
[2020-02-10 08:18] LABS: ALKALINE PHOSPHATASE 101 U/L (45-117); BILIRUBIN,TOTAL 0.7 mg/dL (0.2-1.0); CHOL/HDL RATIO 2.9; CHOLESTEROL, TOTAL 123 mg/dL (140-239); CREATININE 1.42 mg/dL (0.7-1.3); HDL CHOL % 35 % (26-37); HDL CHOLESTEROL (DIRECT) 43 mg/dL (40-60); LDL CHOLESTEROL,CALCULATED 66 mg/dL (54-169); LDL/HDL RATIO 1.5 (0.5-3.0); T4 (THYROXINE) 10.9 mcg/dL (4.5-12.1); TOTAL PROTEIN 6.4 g/dL (6.4-8.2); TRIGLYCERIDES 72 mg/dL (50-200); VLDL CHOLESTEROL 14 mg/dL (0-25)
== END | disposition home or self-care (01) ==
LOC: LAB 07:37
PROVIDERS: ATTEND Registered Nurse
DX: I11.0 Hypertensive heart disease with heart failure (principal); I50.41 Acute combined systolic (congestive) and diastolic (congestive) heart failure; I48.92 Unspecified atrial flutter; E03.9 Hypothyroidism, unspecified; E78.2 Mixed hyperlipidemia; I25.10 Atherosclerotic heart disease of native coronary artery without angina pectoris; I25.5 Ischemic cardiomyopathy; I42.9 Cardiomyopathy, unspecified; R60.9 Edema, unspecified
CPT/HCPCS: 36415; 80053; 80061; 83880; 84436; 84443; 84481

== ENCOUNTER 2020-02-25 16:35 | Inpatient (IN) | payer MEDICARE ==
[~2020-02-25] VITALS: Ht 167.6 cm; Wt 80.4 kg
--- NOTE | 2020-02-25 16:35 | NUR ---
BIBA FROM HOME C/O SUDDEN RT GROIN PAIN FOLLOWED BY "DISCOLORATION" & UNABLE TO BEAR WT, RLE COOL TO TOUCH WITH MOTTLING & CAP REFILL >3SECS, +ELIQUIS, UNABLE TO PALPATE OR AUSCULTATE RT DP, POST TIB OR POPLITEAL PULSES VIA DOPPLER, +FEM PULSE, PT GRINDSTONE BUT AOX4, CHANGED INTO GOWN; CARDIAC, NIBP & SPO2 MONITORS IN PLACE
[2020-02-25 16:55] LABS: BASOPHILS # (AUTO) 0.03 x10^3/uL (0-0.1); BASOPHILS % (AUTO) 0 % (0-1); EOSINOPHILS # (AUTO) 0.12 x10^3/uL (0-0.4); EOSINOPHILS % (AUTO) 1 % (1-7); LYMPHOCYTES # (AUTO) 1.36 x10^3/uL (1-3.4); LYMPHOCYTES % (AUTO) 14 % (22-44); MD NO; MEAN CORPUSCULAR HEMOGLOBIN 29.5 pg (27.5-34.5); MEAN CORPUSCULAR HGB CONC 32.2 g/dL (33.2-36.2); MEAN PLATELET VOLUME 10.5 fL (7.4-10.4); MONOCYTES # (AUTO) 0.91 x10^3/uL (0.2-0.8); MONOCYTES % (AUTO) 9 % (2-9); NEUTROPHILS % (AUTO) 75 % (42-75); PLATELET COUNT 124 x10^3/uL (130-400); RED BLOOD COUNT 4.74 x10^6/uL (4.38-5.82); RED CELL DISTRIBUTION WIDTH 15.9 % (9.4-14.8)
[2020-02-25] MEDS ORDERED: SODIUM CHLORIDE FLUSH 10ML SYR IVF ONE (17:00)
[2020-02-25 17:02] LABS: INTERNATIONAL NORMALIZED RATIO 1.04 (0.93-1.1)
[2020-02-25 17:05] LABS: ALANINE AMINOTRANSFERASE 28 U/L (12-78); ALBUMIN 3.1 g/dL (3.4-5.0); ANION GAP 6 mmol/L (5-15); CALCIUM 8.2 mg/dL (8.5-10.1); CHLORIDE 111 mmol/L (98-107); CREATININE 1.77 mg/dL (0.7-1.3)
[2020-02-25 17:10] LABS: ALKALINE PHOSPHATASE 89 U/L (45-117); BILIRUBIN,TOTAL 0.8 mg/dL (0.2-1.0); TOTAL PROTEIN 6.2 g/dL (6.4-8.2); TROPONIN I 0.025 ng/mL (0.000-0.045)
--- NOTE | 2020-02-25 17:28 | NUR ---
PT UPRIGHT ON GURNEY AWAKE & COMFORTABLE, ABLE TO BEND RLE ("I COULDN'T BEND IT BEFORE"), DECR MOTTLING, CAP REFILL >3 SECS & SKIN COOL TO TOUCH, VERY WEAK PALPABLE RT DP PULSE BUT STILL UNABLE TO AUSCULTATE WITH DOPPLER, COMFORT MEASURES PROVIDED CALL LIGHT WITHIN REACH, PT TO CT.
[2020-02-25] MEDS ORDERED: SODIUM CHLORIDE 0.9% 1,000ML IVBOLUS ONE (17:30)
[2020-02-25] MEDS ORDERED: hydrALAzine 20 MG/ML, 1ML IVPush PRN (18:30)
[2020-02-25] MEDS ORDERED: NITROGLYCERIN 0.4 MG BOTTLE (25 TABS) SL PRN (18:30)
[2020-02-25] MEDS ORDERED: morphine SULFATE 10 MG/ML, 1ML IVPush PRN (18:30)
[2020-02-25] MEDS ORDERED: MELATONIN 5 MG TABLET PO PRN (18:30)
[2020-02-25] MEDS ORDERED: ONDANSETRON 2MG/ML, 2ML IVPush PRN (18:30)
[2020-02-25] MEDS ORDERED: DOCUSATE 100 MG CAPSULE PO PRN (18:30)
[2020-02-25] MEDS ORDERED: POLYETHYLENE GLYCOL 17 GM PACKET PO PRN (18:30)
--- NOTE | 2020-02-25 19:01 | NUR ---
REPORT GIVEN TO SARAHY
[2020-02-25] MEDS ORDERED: HEPARIN 5,000 UNITS/ML, 1ML IV PRN (20:00)
[2020-02-25] MEDS ORDERED: HEPARIN 5,000 UNITS/ML, 1ML IV ONE (20:00)
[2020-02-25 20:56] VITALS: BP 125/78
[2020-02-25] MEDS ORDERED: METHENAMINE HIPPURATE 1 GM TABLET PO SCH (21:00)
[2020-02-25] MEDS ORDERED: OMNIPAQUE 350 MG/ML, 100ML BOTTLE ONE (21:38)
[2020-02-25] MEDS: HEPARIN 25,000 UNITS/250ML PMX 250 ML IV PRN (22:21)
[2020-02-25] MEDS: PREGABALIN 75 MG CAPSULE PO SCH (22:23)
[2020-02-25] MEDS: LIDODERM 5% PATCH TD SCH (22:23)
[2020-02-25] MEDS: ATORVASTATIN 40 MG TABLET PO SCH (22:23)
[2020-02-25] MEDS: LACTOBACILLUS CHEW TABLET PO SCH (22:23)
[2020-02-26 00:27] VITALS: BP 118/72
[2020-02-26] MEDS: CARVEDILOL 3.125 MG TABLET PO SCH ×2 (05:29→17:06)
[2020-02-26 06:00] LABS: CHLORIDE 111 mmol/L (98-107)
[2020-02-26 06:05] LABS: ANION GAP 5 mmol/L (5-15); CALCIUM 8.3 mg/dL (8.5-10.1); CREATININE 1.33 mg/dL (0.7-1.3)
[2020-02-26 07:47] VITALS: BP 105/68
[2020-02-26] MEDS: FINASTERIDE 5 MG TABLET PO SCH (08:03)
[2020-02-26] MEDS: ISOSORBIDE MONONITRATE ER 30 MG TABLET PO SCH (08:04)
[2020-02-26] MEDS: TAMSULOSIN 0.4 MG CAP.ER.24H PO SCH (08:04)
[2020-02-26] MEDS: FUROSEMIDE 40 MG TABLET PO SCH (08:04)
[2020-02-26] MEDS: LACTOBACILLUS CHEW TABLET PO SCH ×3 (08:04→20:47)
[2020-02-26] MEDS: SENNA/DOCUSATE TABLET PO SCH (08:04)
[2020-02-26] MEDS: PREGABALIN 75 MG CAPSULE PO SCH ×2 (08:05→20:48)
[2020-02-26] MEDS: SPIRONOLACTONE 25 MG TABLET PO SCH (08:05)
[2020-02-26] MEDS: LEVOTHYROXINE 25 MCG TABLET PO SCH (08:05)
[2020-02-26] MEDS: OMEPRAZOLE 20 MG CAPSULE.DR PO SCH (08:05)
[2020-02-26] MEDS: LIDODERM REMOVE PATCH NOTE XX SCH (08:17)
[2020-02-26] MEDS ORDERED: APIXABAN 2.5 MG TABLET PO SCH (09:00)
[2020-02-26 11:08] LABS: MICROSCOPIC AUTO
[2020-02-26 13:26] VITALS: BP 103/68
[2020-02-26 18:53] VITALS: BP 98/63
[2020-02-26] MEDS: LIDODERM 5% PATCH TD SCH (20:48)
[2020-02-26] MEDS: ATORVASTATIN 40 MG TABLET PO SCH (20:48)
[2020-02-26] MEDS ORDERED: FENTANYL PF 100 MCG/2ML ONE (22:14)
[2020-02-26] MEDS ORDERED: BUPIVACAINE/PF-EPI 0.5% 1:200K ONE (22:26)
[2020-02-26] MEDS ORDERED: BACITRACIN 50,000 UNIT ONE (22:26)
[2020-02-26] MEDS ORDERED: PAPAVERINE 30 MG/ML, 2ML ONE (22:26)
[2020-02-26] MEDS ORDERED: PROTAMINE SULFATE 10 MG/ML, 5ML ONE (22:26)
[2020-02-26] MEDS ORDERED: THROMBIN 20,000 UNIT VIAL TP ONE (22:26)
[2020-02-26] MEDS ORDERED: HEPARIN 1,000 UNITS/ML, 30ML ONE (22:26)
[2020-02-26] MEDS ORDERED: PHENYLEPHRINE 10 MG/ML ONE (22:50)
[2020-02-26] MEDS ORDERED: VASOPRESSIN 20 UNIT/ML, 1ML ONE (23:46)
[2020-02-26] MEDS ORDERED: DEXAMETHASONE 4 MG/ML, 1ML ONE (23:46)
[2020-02-26] MEDS ORDERED: GLYCOPYRROLATE 0.2MG/1ML, 5ML ONE (23:46)
[2020-02-26] MEDS ORDERED: CEFAZOLIN 1,000 MG ONE (23:46)
[2020-02-26] MEDS ORDERED: PROPOFOL 10 MG/ML, 20ML ONE (23:46)
[2020-02-26] MEDS ORDERED: NEOSTIGMINE 1 MG/ML, 10ML ONE (23:46)
[2020-02-26] MEDS ORDERED: SUCCINYLCHOLINE 20 MG/ML, 10ML ONE (23:47)
[2020-02-26] MEDS ORDERED: ROCURONIUM 10MG/ML,5ML ONE (23:47)
[2020-02-26] MEDS ORDERED: ONDANSETRON 2MG/ML, 2ML ONE (23:47)
[2020-02-27] MEDS ORDERED: OMNIPAQUE 350 MG/ML, 50 ML BOTTLE IV ONE (00:36)
[2020-02-27] MEDS ORDERED: SUGAMMADEX 200 MG/2 ML IVPush ONE ×7 (01:12)
[2020-02-27] MEDS ORDERED: VISIPAQUE 270 MG/ML, 50ML BOTTLE ONE (01:49)
[2020-02-27] MEDS ORDERED: OXYcodone 5 MG/5 ML ORAL.SOL UDC PO PRN (02:00)
[2020-02-27] MEDS ORDERED: HYDROmorphone 1 MG/ML, 1ML INJ IVPush PRN (02:00)
[2020-02-27] MEDS ORDERED: HALOPERIDOL 5 MG/ML IV PRN (02:00)
[2020-02-27] MEDS ORDERED: PROMETHAZINE 25 MG/ML, 1ML IVPush PRN (02:00)
[2020-02-27] MEDS ORDERED: ACETAMINOPHEN 325 MG TABLET PO PRN (02:00)
[2020-02-27] MEDS ORDERED: OXYcodone 5 MG/5 ML ORAL.SOL UDC ONE (02:03)
[2020-02-27] MEDS ORDERED: FENTANYL PF 100 MCG/2ML ONE (02:03)
[2020-02-27] MEDS: FENTANYL PF 100 MCG/2ML IV PRN ×2 (02:05→02:10)
[2020-02-27 03:03] VITALS: BP 107/66
[2020-02-27] MEDS: CARVEDILOL 3.125 MG TABLET PO SCH ×2 (05:26→17:11)
[2020-02-27] MEDS: ACETAMINOPHEN 325 MG TABLET PO PRN ×3 (05:26→20:24)
[2020-02-27 06:06] LABS: BASOPHILS # (AUTO) 0.01 x10^3/uL (0-0.1); BASOPHILS % (AUTO) 0 % (0-1); EOSINOPHILS % (AUTO) 1 % (1-7); LYMPHOCYTES % (AUTO) 7 % (22-44); MD NO; MEAN CORPUSCULAR HEMOGLOBIN 29.7 pg (27.5-34.5); MEAN CORPUSCULAR HGB CONC 32.5 g/dL (33.2-36.2); MONOCYTES # (AUTO) 1.04 x10^3/uL (0.2-0.8); MONOCYTES % (AUTO) 7 % (2-9); NEUTROPHILS # (AUTO) 12.96 x10^3/uL (1.8-6.8); NEUTROPHILS % (AUTO) 85 % (42-75); PLATELET COUNT 114 x10^3/uL (130-400); RED BLOOD COUNT 4.56 x10^6/uL (4.38-5.82); RED CELL DISTRIBUTION WIDTH 15.6 % (9.4-14.8)
[2020-02-27 06:13] LABS: ANION GAP 5 mmol/L (5-15); CALCIUM 8.1 mg/dL (8.5-10.1); CHLORIDE 107 mmol/L (98-107)
[2020-02-27 06:18] LABS: CREATININE 1.32 mg/dL (0.7-1.3)
[2020-02-27 06:44] VITALS: BP 118/70
[2020-02-27] MEDS: PREGABALIN 75 MG CAPSULE PO SCH ×2 (08:12→20:23)
[2020-02-27] MEDS: ISOSORBIDE MONONITRATE ER 30 MG TABLET PO SCH (08:12)
[2020-02-27] MEDS: LACTOBACILLUS CHEW TABLET PO SCH ×3 (08:12→20:23)
[2020-02-27] MEDS: FINASTERIDE 5 MG TABLET PO SCH (08:12)
[2020-02-27] MEDS: FUROSEMIDE 40 MG TABLET PO SCH (08:12)
[2020-02-27] MEDS: OMEPRAZOLE 20 MG CAPSULE.DR PO SCH (08:12)
[2020-02-27] MEDS: SPIRONOLACTONE 25 MG TABLET PO SCH (08:12)
[2020-02-27] MEDS: TAMSULOSIN 0.4 MG CAP.ER.24H PO SCH (08:13)
[2020-02-27] MEDS: LEVOTHYROXINE 25 MCG TABLET PO SCH (08:13)
[2020-02-27] MEDS: SENNA/DOCUSATE TABLET PO SCH (08:13)
[2020-02-27] MEDS: LIDODERM REMOVE PATCH NOTE XX SCH (08:27)
[2020-02-27] MEDS: HEPARIN 25,000 UNITS/250ML PMX 250 ML IV PRN (11:27)
[2020-02-27 12:32] VITALS: BP 84/54
[2020-02-27 12:56] VITALS: BP 92/49
[2020-02-27 17:08] VITALS: BP 115/73
[2020-02-27 18:38] VITALS: BP 111/68
[2020-02-27] MEDS: ATORVASTATIN 40 MG TABLET PO SCH (20:23)
[2020-02-27] MEDS: LIDODERM 5% PATCH TD SCH (20:24)
[2020-02-28 01:08] VITALS: BP 120/67
[2020-02-28 03:29] LABS: ANION GAP 5 mmol/L (5-15); CALCIUM 8.1 mg/dL (8.5-10.1); CHLORIDE 108 mmol/L (98-107); CREATININE 1.44 mg/dL (0.7-1.3)
[2020-02-28 04:00] LABS: BASOPHILS # (AUTO) 0.02 x10^3/uL (0-0.1); BASOPHILS % (AUTO) 0 % (0-1); EOSINOPHILS # (AUTO) 0.09 x10^3/uL (0-0.4); EOSINOPHILS % (AUTO) 1 % (1-7); LYMPHOCYTES # (AUTO) 1.48 x10^3/uL (1-3.4); LYMPHOCYTES % (AUTO) 14 % (22-44); MD SCAN; MEAN CORPUSCULAR HEMOGLOBIN 29.8 pg (27.5-34.5); MEAN CORPUSCULAR HGB CONC 32.5 g/dL (33.2-36.2); MEAN PLATELET VOLUME 10.9 fL (7.4-10.4); MONOCYTES # (AUTO) 0.76 x10^3/uL (0.2-0.8); MONOCYTES % (AUTO) 7 % (2-9); NEUTROPHILS # (AUTO) 8.48 x10^3/uL (1.8-6.8); NEUTROPHILS % (AUTO) 78 % (42-75); PLATELET COUNT 109 x10^3/uL (130-400); RED BLOOD COUNT 4.32 x10^6/uL (4.38-5.82); RED CELL DISTRIBUTION WIDTH 15.9 % (9.4-14.8)
[2020-02-28] MEDS: CARVEDILOL 3.125 MG TABLET PO SCH ×2 (05:05→17:23)
[2020-02-28] MEDS: ACETAMINOPHEN 325 MG TABLET PO PRN (05:05)
[2020-02-28 07:14] VITALS: BP 122/64
[2020-02-28] MEDS: SPIRONOLACTONE 25 MG TABLET PO SCH (07:24)
[2020-02-28] MEDS: OMEPRAZOLE 20 MG CAPSULE.DR PO SCH (07:24)
[2020-02-28] MEDS: LEVOTHYROXINE 25 MCG TABLET PO SCH (07:24)
[2020-02-28] MEDS: ISOSORBIDE MONONITRATE ER 30 MG TABLET PO SCH (07:24)
[2020-02-28] MEDS: TAMSULOSIN 0.4 MG CAP.ER.24H PO SCH (07:24)
[2020-02-28] MEDS: PREGABALIN 75 MG CAPSULE PO SCH ×2 (07:24→20:18)
[2020-02-28] MEDS: LACTOBACILLUS CHEW TABLET PO SCH ×3 (07:25→20:18)
[2020-02-28] MEDS: FINASTERIDE 5 MG TABLET PO SCH (07:25)
[2020-02-28] MEDS: SENNA/DOCUSATE TABLET PO SCH (07:25)
[2020-02-28] MEDS: LIDODERM REMOVE PATCH NOTE XX SCH (07:25)
[2020-02-28] MEDS: FUROSEMIDE 40 MG TABLET PO SCH (07:25)
[2020-02-28] MEDS: HYDROcodone/APAP 5/325 TABLET PO PRN ×2 (10:54→20:19)
[2020-02-28 12:24] VITALS: BP 112/62
[2020-02-28] MEDS: HEPARIN 25,000 UNITS/250ML PMX 250 ML IV PRN (12:46)
[2020-02-28 17:22] VITALS: BP 109/61
[2020-02-28 18:17] VITALS: BP 112/68
[2020-02-28] MEDS: ATORVASTATIN 40 MG TABLET PO SCH (20:18)
[2020-02-28] MEDS: LIDODERM 5% PATCH TD SCH (20:19)
[2020-02-29 00:08] VITALS: BP 129/70
[2020-02-29] MEDS: CARVEDILOL 3.125 MG TABLET PO SCH ×2 (05:12→16:57)
[2020-02-29] MEDS: HYDROcodone/APAP 5/325 TABLET PO PRN (05:13)
[2020-02-29 07:26] LABS: ANION GAP 5 mmol/L (5-15); CALCIUM 8.6 mg/dL (8.5-10.1); CHLORIDE 107 mmol/L (98-107); CREATININE 1.46 mg/dL (0.7-1.3)
[2020-02-29 07:45] VITALS: BP 112/70
[2020-02-29] MEDS: LACTOBACILLUS CHEW TABLET PO SCH ×3 (07:58→20:42)
[2020-02-29] MEDS: FINASTERIDE 5 MG TABLET PO SCH (07:58)
[2020-02-29] MEDS: OMEPRAZOLE 20 MG CAPSULE.DR PO SCH (07:58)
[2020-02-29] MEDS: ISOSORBIDE MONONITRATE ER 30 MG TABLET PO SCH (07:58)
[2020-02-29] MEDS: SPIRONOLACTONE 25 MG TABLET PO SCH (07:58)
[2020-02-29] MEDS: PREGABALIN 75 MG CAPSULE PO SCH ×2 (07:58→20:42)
[2020-02-29] MEDS: LEVOTHYROXINE 25 MCG TABLET PO SCH (07:59)
[2020-02-29] MEDS: SENNA/DOCUSATE TABLET PO SCH (07:59)
[2020-02-29] MEDS: FUROSEMIDE 40 MG TABLET PO SCH (08:07)
[2020-02-29] MEDS: TAMSULOSIN 0.4 MG CAP.ER.24H PO SCH (08:07)
[2020-02-29] MEDS: APIXABAN 2.5 MG TABLET PO SCH ×2 (08:07→20:42)
[2020-02-29 08:12] LABS: MEAN CORPUSCULAR HEMOGLOBIN 30.1 pg (27.5-34.5); MEAN CORPUSCULAR HGB CONC 32.6 g/dL (33.2-36.2); MEAN PLATELET VOLUME 11.4 fL (7.4-10.4); PLATELET COUNT 117 x10^3/uL (130-400); RED BLOOD COUNT 4.87 x10^6/uL (4.38-5.82); RED CELL DISTRIBUTION WIDTH 15.8 % (9.4-14.8)
[2020-02-29 08:15] LABS: <PLATELET ESTIMATE> DECREASED; ANISOCYTOSIS 1+; BASOPHILS # (AUTO) 0.03 x10^3/uL (0-0.1); BASOPHILS % (AUTO) 0 % (0-1); EOSINOPHILS # (AUTO) 0.13 x10^3/uL (0-0.4); EOSINOPHILS % (AUTO) 1 % (1-7); LARGE PLATELETS 1+; LYMPHOCYTES # (AUTO) 1.32 x10^3/uL (1-3.4); LYMPHOCYTES % (AUTO) 12 % (22-44); MD MORPH REVIEW ONLY; MONOCYTES # (AUTO) 0.72 x10^3/uL (0.2-0.8); MONOCYTES % (AUTO) 7 % (2-9); NEUTROPHILS # (AUTO) 8.66 x10^3/uL (1.8-6.8); NEUTROPHILS % (AUTO) 80 % (42-75); OVALOCYTES 1+
[2020-02-29] MEDS: LIDODERM REMOVE PATCH NOTE XX SCH (08:19)
[2020-02-29 13:02] VITALS: BP 114/68
[2020-02-29 13:25] VITALS: BP 105/53
[2020-02-29] MEDS ORDERED: MECLIZINE 25 MG TABLET PO PRN (15:00)
[2020-02-29 16:56] VITALS: BP 92/54
[2020-02-29 18:55] VITALS: BP 95/53
[2020-02-29] MEDS: ATORVASTATIN 40 MG TABLET PO SCH (20:42)
[2020-02-29] MEDS: LIDODERM 5% PATCH TD SCH (20:43)
[2020-03-01 01:09] VITALS: BP 118/69
[2020-03-01 05:46] VITALS: BP 91/54
[2020-03-01] MEDS: CARVEDILOL 3.125 MG TABLET PO SCH ×2 (05:55→16:56)
[2020-03-01 07:55] VITALS: BP 104/66
[2020-03-01] MEDS: TAMSULOSIN 0.4 MG CAP.ER.24H PO SCH (08:48)
[2020-03-01] MEDS: LACTOBACILLUS CHEW TABLET PO SCH ×2 (08:49→16:55)
[2020-03-01] MEDS: OMEPRAZOLE 20 MG CAPSULE.DR PO SCH (08:49)
[2020-03-01] MEDS: APIXABAN 2.5 MG TABLET PO SCH (08:50)
[2020-03-01] MEDS: LEVOTHYROXINE 25 MCG TABLET PO SCH (08:50)
[2020-03-01] MEDS: SENNA/DOCUSATE TABLET PO SCH (08:50)
[2020-03-01] MEDS: PREGABALIN 75 MG CAPSULE PO SCH (08:50)
[2020-03-01] MEDS: LIDODERM REMOVE PATCH NOTE XX SCH (08:54)
[2020-03-01] MEDS: ISOSORBIDE MONONITRATE ER 30 MG TABLET PO SCH (08:54)
[2020-03-01] MEDS ORDERED: FUROSEMIDE 20 MG TABLET PO SCH (09:00)
[2020-03-01] MEDS: FINASTERIDE 5 MG TABLET PO SCH (09:43)
[2020-03-01] MEDS ORDERED: FURO20TA3 PO (10:48)
[2020-03-01] MEDS ORDERED: APIX2.5T PO (10:48)
[2020-03-01] MEDS ORDERED: MECL-101 PO ×2 (10:48)
[2020-03-01 14:35] VITALS: BP 127/80
[2020-03-20] MEDS ORDERED: MECL-101 PO (10:47)
[2020-03-20] MEDS ORDERED: CEFD300C37 PO (10:47)
[2020-03-20] MEDS ORDERED: AZIT500T PO (10:47)
== END 2020-03-01 18:53 | disposition home health service (06) | DRG 252 ==
LOC: ED 19:46 → INTOOBSV 19:56 → OBSVTOIN 19:56 → EDIP 19:56 → 4WST 20:49
PROVIDERS: ADMIT Internal Medicine; ATTEND Internal Medicine
PROC: 04CK0ZZ Extirpation of Matter from Right Femoral Artery, Open Approach (ICD-10-PCS; 2020-02-26)
PROC: 04CP0ZZ Extirpation of Matter from Right Anterior Tibial Artery, Open Approach (ICD-10-PCS; 2020-02-26)
PROC: 04CR0ZZ Extirpation of Matter from Right Posterior Tibial Artery, Open Approach (ICD-10-PCS; 2020-02-26)
PROC: 04CV0ZZ Extirpation of Matter from Right Foot Artery, Open Approach (ICD-10-PCS; 2020-02-26)
PROC: B41F1ZZ Fluoroscopy of Right Lower Extremity Arteries using Low Osmolar Contrast (ICD-10-PCS; 2020-02-26)
PROC: 04CM0ZZ Extirpation of Matter from Right Popliteal Artery, Open Approach (ICD-10-PCS; principal; 2020-02-26 19:45)
DX: I73.9 Peripheral vascular disease, unspecified (principal); N17.0 Acute kidney failure with tubular necrosis; I13.0 Hypertensive heart and chronic kidney disease with heart failure and stage 1 through stage 4 chronic kidney disease, or unspecified chronic kidney disease; I48.92 Unspecified atrial flutter; D68.69 Other thrombophilia; I50.22 Chronic systolic (congestive) heart failure; G47.30 Sleep apnea, unspecified; D72.829 Elevated white blood cell count, unspecified; I48.91 Unspecified atrial fibrillation; Z79.01 Long term (current) use of anticoagulants; D69.2 Other nonthrombocytopenic purpura; E78.5 Hyperlipidemia, unspecified; N18.3 Chronic kidney disease, stage 3 (moderate); Z66 Do not resuscitate; I25.10 Atherosclerotic heart disease of native coronary artery without angina pectoris; K21.9 Gastro-esophageal reflux disease without esophagitis; M79.89 Other specified soft tissue disorders; R71.8 Other abnormality of red blood cells; N40.0 Benign prostatic hyperplasia without lower urinary tract symptoms; I25.5 Ischemic cardiomyopathy; R26.2 Difficulty in walking, not elsewhere classified; I25.2 Old myocardial infarction; Z95.1 Presence of aortocoronary bypass graft; Z90.49 Acquired absence of other specified parts of digestive tract; Z95.0 Presence of cardiac pacemaker; Z80.8 Family history of malignant neoplasm of other organs or systems; Z83.49 Family history of other endocrine, nutritional and metabolic diseases
CPT/HCPCS: 36415; 71045; 71275; 75635; 75710; 80048; 80053; 81001; 83880; 84484; 85014; 85018; 85025; 85520; 85610; 88304; 93005; 93922; 93926; G0378; J0690; J1100; J1644; J2405; J2704; J2710; J2720; J3010; Q9966; Q9967; C1757; J0330; J2370; J2440; J7030

== ENCOUNTER 2020-04-14 15:16 | Emergency (ER) | payer MEDICARE ==
[~2020-04-14] VITALS: Ht 167.6 cm; Wt 64.0 kg
[~2020-04-14 15:16] MED LIST changes: +AZIT500T PO; +CEFD300C37 PO; +MECL-101 PO
--- NOTE | 2020-04-14 17:15 | NUR ---
ALL RESULTS ARE BACK AT THIS TIME. CHART UP FOR RECHECK.
[2020-04-14 17:33] VITALS: BP 113/64
--- NOTE | 2020-04-14 17:34 | NUR ---
BREAK RN: PT RESTING ON JT. NADN. BEEBE.
--- NOTE | 2020-04-14 18:06 | NUR ---
[facility] ENEMA ADMIN BY BREAK RN. BEDSIDE COMMODE AT BEDSIDE FOR PT USE.
--- NOTE | 2020-04-14 18:07 | NUR ---
BREAK RN: [place] ENEMA ADMINISTERED.
--- NOTE | 2020-04-14 18:35 | NUR ---
PT HAD LARGE BM. PT STATES HE FEELS MUCH BETTER.
== END 2020-04-14 16:23 ==
LOC: ED 16:22
DX: K59.00 Constipation, unspecified (principal); I11.0 Hypertensive heart disease with heart failure; I50.9 Heart failure, unspecified; I25.10 Atherosclerotic heart disease of native coronary artery without angina pectoris; I48.91 Unspecified atrial fibrillation; K21.9 Gastro-esophageal reflux disease without esophagitis; I25.2 Old myocardial infarction; E78.5 Hyperlipidemia, unspecified; Z90.89 Acquired absence of other organs; Z95.0 Presence of cardiac pacemaker; Z87.891 Personal history of nicotine dependence
CPT/HCPCS: 74021; 99284

== ENCOUNTER → 2020-06-07 | Outpatient (CLI) | payer MEDICARE | END | disposition home or self-care (01) | LOC: CFH 13:09 | PROVIDERS: ATTEND Family Medicine | DX: G31.9 Degenerative disease of nervous system, unspecified (principal); J32.9 Chronic sinusitis, unspecified | CPT/HCPCS: 70450 ==

== ENCOUNTER 2020-11-28 18:34 | Inpatient (IN) | payer MEDICARE ==
[~2020-11-28] VITALS: Ht 167.6 cm; Wt 69.2 kg
--- NOTE | 2020-11-28 19:01 | NUR ---
THIS IS AN 89M THAT COMES IN TODAY FOR DIZZINESS, PER PT SYMPTOMS STARTED ABOUT NOON AND PT REPORTED L SIDED CP AROUND 0800 (NO DENIES PAIN). 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 PT CONNECTED TO ALL MONITORING VSS, YAHAIRA.
--- NOTE | 2020-11-28 19:02 | NUR ---
ERP AT BEDSIDE
--- NOTE | 2020-11-28 19:12 | NUR ---
TECH AT BEDSIDE FOR ORTHOSTATIC VS AT THIS TIME.
--- NOTE | 2020-11-28 19:20 | NUR ---
LAB AT BEDSIDE FOR DRAW
[2020-11-28 19:31] LABS: BASOPHILS % (AUTO) 0 % (0-1); EOSINOPHILS % (AUTO) 1 % (1-7); LYMPHOCYTES % (AUTO) 18 % (22-44); MD NO; MEAN CORPUSCULAR HEMOGLOBIN 30.8 pg (27.5-34.5); MEAN CORPUSCULAR HGB CONC 33.5 g/dL (33.2-36.2); MEAN PLATELET VOLUME 9.9 fL (7.4-10.4); MONOCYTES % (AUTO) 14 % (2-9); NEUTROPHILS % (AUTO) 67 % (42-75); PLATELET COUNT 216 x10^3/uL (130-400); RED BLOOD COUNT 4.81 x10^6/uL (4.38-5.82); RED CELL DISTRIBUTION WIDTH 14.4 % (9.4-14.8)
[2020-11-28 19:37] LABS: ALBUMIN 3.6 g/dL (3.4-5.0); ANION GAP 7 mmol/L (5-15); CALCIUM 8.8 mg/dL (8.5-10.1); CHLORIDE 105 mmol/L (98-107); INTERNATIONAL NORMALIZED RATIO 1.15 (0.93-1.1); PROTHROMBIN TIME 12.3 Seconds (9.6-11.5)
[2020-11-28 19:43] LABS: ALANINE AMINOTRANSFERASE 21 U/L (12-78); ALKALINE PHOSPHATASE 96 U/L (45-117); BILIRUBIN,TOTAL 0.4 mg/dL (0.2-1.0); CREATININE 1.87 mg/dL (0.7-1.3); TOTAL PROTEIN 6.9 g/dL (6.4-8.2); TROPONIN I < 0.015 ng/mL (0.000-0.045)
[2020-11-28] MEDS ORDERED: SODIUM CHLORIDE 0.9%, 500ML IVBOLUS ONE ×2 (20:00→23:30)
[2020-11-28] MEDS ORDERED: RIVA15TA PO (20:19)
[2020-11-28] MEDS ORDERED: FINASTERIDE (20:20)
--- NOTE | 2020-11-28 21:55 | NUR ---
REPORT TO YUE ABDI PT READY FOR TRANSFER TO [facility]
[2020-11-28 22:59] VITALS: BP 113/67
[2020-11-28] MEDS ORDERED: ONDANSETRON 2MG/ML, 2ML IVPush PRN (23:30)
[2020-11-28] MEDS ORDERED: LABETALOL 5MG/ML, 20ML IVPush PRN (23:30)
[2020-11-28] MEDS ORDERED: ACETAMINOPHEN 325 MG TABLET PO PRN (23:30)
[2020-11-29] VITALS (11 sets, daily range): BP systolic 88–118; BP diastolic 42–72
[2020-11-29] MEDS ORDERED: SODIUM CHLORIDE 0.9%, 500ML IVBOLUS ONE (04:00)
[2020-11-29 06:01] LABS: BASOPHILS % (AUTO) 0 % (0-1); EOSINOPHILS % (AUTO) 2 % (1-7); LYMPHOCYTES % (AUTO) 25 % (22-44); MEAN CORPUSCULAR HEMOGLOBIN 30.6 pg (27.5-34.5); MEAN CORPUSCULAR HGB CONC 33.1 g/dL (33.2-36.2); MEAN PLATELET VOLUME 9.8 fL (7.4-10.4); MONOCYTES % (AUTO) 12 % (2-9); NEUTROPHILS % (AUTO) 61 % (42-75); PLATELET COUNT 181 x10^3/uL (130-400); RED BLOOD COUNT 4.45 x10^6/uL (4.38-5.82); RED CELL DISTRIBUTION WIDTH 14.5 % (9.4-14.8)
[2020-11-29 06:03] LABS: MD NO
[2020-11-29 06:12] LABS: ALANINE AMINOTRANSFERASE 17 U/L (12-78); ALBUMIN 3.1 g/dL (3.4-5.0); ANION GAP 7 mmol/L (5-15); CHLORIDE 106 mmol/L (98-107); CREATININE 1.32 mg/dL (0.7-1.3)
[2020-11-29 06:16] LABS: ALKALINE PHOSPHATASE 79 U/L (45-117); BILIRUBIN,TOTAL 0.4 mg/dL (0.2-1.0); CHOL/HDL RATIO 2.6; CHOLESTEROL, TOTAL 119 mg/dL (140-239); HDL CHOL % 38 % (26-37); HDL CHOLESTEROL (DIRECT) 45 mg/dL (40-60); LDL CHOLESTEROL,CALCULATED 56 mg/dL (54-169); LDL/HDL RATIO 1.2 (0.5-3.0); TOTAL PROTEIN 5.8 g/dL (6.4-8.2); TRIGLYCERIDES 90 mg/dL (50-200); VLDL CHOLESTEROL 18 mg/dL (0-25)
[2020-11-29] MEDS: CARVEDILOL 3.125 MG TABLET PO SCH ×2 (06:41→18:21)
[2020-11-29] MEDS: MECLIZINE 25 MG TABLET PO PRN ×2 (06:44→18:38)
[2020-11-29] MEDS: AMIODARONE 200 MG TABLET PO SCH (09:25)
[2020-11-29] MEDS: FINASTERIDE 5 MG TABLET PO SCH (09:34)
[2020-11-29] MEDS: APIXABAN 2.5 MG TABLET PO SCH ×2 (09:34→20:40)
[2020-11-29] MEDS: ATORVASTATIN 40 MG TABLET PO SCH (20:40)
[2020-11-30] MEDS: HYDROcodone/APAP 5/325 TABLET PO PRN (00:33)
[2020-11-30 00:46] VITALS: BP 123/71
[2020-11-30] MEDS: CARVEDILOL 3.125 MG TABLET PO SCH ×2 (06:01→17:18)
[2020-11-30 06:43] VITALS: BP 118/71
[2020-11-30] MEDS: AMIODARONE 200 MG TABLET PO SCH (09:27)
[2020-11-30] MEDS: APIXABAN 2.5 MG TABLET PO SCH ×2 (09:27→20:20)
[2020-11-30] MEDS: FINASTERIDE 5 MG TABLET PO SCH (09:27)
[2020-11-30 12:27] VITALS: BP 116/89
[2020-11-30] MEDS ORDERED: MECLIZINE 25 MG TABLET PO PRN (17:00)
[2020-11-30 19:50] VITALS: BP 137/75
[2020-11-30] MEDS: ATORVASTATIN 40 MG TABLET PO SCH (20:20)
[2020-12-01] MEDS: HYDROcodone/APAP 5/325 TABLET PO PRN (00:32)
[2020-12-01 00:53] VITALS: BP 118/66
[2020-12-01 04:46] LABS: BASOPHILS % (AUTO) 0 % (0-1); EOSINOPHILS % (AUTO) 2 % (1-7); LYMPHOCYTES % (AUTO) 22 % (22-44); MEAN CORPUSCULAR HEMOGLOBIN 30.9 pg (27.5-34.5); MEAN CORPUSCULAR HGB CONC 33.8 g/dL (33.2-36.2); MEAN PLATELET VOLUME 9.3 fL (7.4-10.4); MONOCYTES % (AUTO) 10 % (2-9); NEUTROPHILS % (AUTO) 65 % (42-75); PLATELET COUNT 162 x10^3/uL (130-400); RED CELL DISTRIBUTION WIDTH 14.1 % (9.4-14.8)
[2020-12-01 04:49] LABS: MD NO
[2020-12-01 05:00] LABS: ANION GAP 4 mmol/L (5-15); CALCIUM 8.2 mg/dL (8.5-10.1); CHLORIDE 110 mmol/L (98-107); CREATININE 1.23 mg/dL (0.7-1.3)
[2020-12-01] MEDS: CARVEDILOL 3.125 MG TABLET PO SCH ×2 (05:54→17:24)
[2020-12-01 06:57] VITALS: BP 120/65
[2020-12-01] MEDS: AMIODARONE 200 MG TABLET PO SCH (09:27)
[2020-12-01] MEDS: FINASTERIDE 5 MG TABLET PO SCH (09:27)
[2020-12-01] MEDS: APIXABAN 2.5 MG TABLET PO SCH ×2 (09:27→20:05)
[2020-12-01] MEDS ORDERED: MECL-101 PO (10:20)
[2020-12-01 12:21] VITALS: BP 125/67
[2020-12-01] MEDS: GABAPENTIN 100 MG CAPSULE PO SCH ×2 (16:01→20:05)
[2020-12-01 19:20] VITALS: BP 135/86
[2020-12-01] MEDS: ATORVASTATIN 40 MG TABLET PO SCH (20:05)
[2020-12-02 01:38] VITALS: BP 127/73
[2020-12-02 05:23] VITALS: BP 142/88
[2020-12-02] MEDS: CARVEDILOL 3.125 MG TABLET PO SCH ×2 (05:23→17:35)
[2020-12-02 08:47] VITALS: BP 112/68
[2020-12-02] MEDS: AMIODARONE 200 MG TABLET PO SCH (09:19)
[2020-12-02] MEDS: APIXABAN 2.5 MG TABLET PO SCH ×2 (09:19→21:05)
[2020-12-02] MEDS: GABAPENTIN 100 MG CAPSULE PO SCH ×3 (09:20→21:05)
[2020-12-02] MEDS: FINASTERIDE 5 MG TABLET PO SCH (09:20)
[2020-12-02 15:23] VITALS: BP 115/71
[2020-12-02 19:27] VITALS: BP 113/65
[2020-12-02] MEDS: ATORVASTATIN 40 MG TABLET PO SCH (21:05)
[2020-12-03 02:38] VITALS: BP 113/70
[2020-12-03] MEDS: CARVEDILOL 3.125 MG TABLET PO SCH (05:32)
[2020-12-03 06:33] VITALS: BP 103/67
[2020-12-03] MEDS: FINASTERIDE 5 MG TABLET PO SCH (08:10)
[2020-12-03] MEDS: APIXABAN 2.5 MG TABLET PO SCH (08:10)
[2020-12-03] MEDS: AMIODARONE 200 MG TABLET PO SCH (08:10)
[2020-12-03] MEDS: GABAPENTIN 100 MG CAPSULE PO SCH (08:10)
[2020-12-03 11:02] VITALS: BP 100/66
[2020-12-03] MEDS ORDERED: HYDR-1067 PO (14:24)
[2020-12-03] MEDS ORDERED: RIVA15TA PO (14:24)
== END 2020-12-03 14:38 | disposition hospice, home (50) | DRG 149 ==
LOC: ED 20:08 → EDIP 20:21 → 4WST 22:06
PROVIDERS: ADMIT Internal Medicine; ATTEND Hospitalist
DX: H81.10 Benign paroxysmal vertigo, unspecified ear (principal); I13.0 Hypertensive heart and chronic kidney disease with heart failure and stage 1 through stage 4 chronic kidney disease, or unspecified chronic kidney disease; I50.42 Chronic combined systolic (congestive) and diastolic (congestive) heart failure; E86.1 Hypovolemia; R55 Syncope and collapse; B02.9 Zoster without complications; G89.29 Other chronic pain; I25.10 Atherosclerotic heart disease of native coronary artery without angina pectoris; I25.5 Ischemic cardiomyopathy; I48.91 Unspecified atrial fibrillation; N40.0 Benign prostatic hyperplasia without lower urinary tract symptoms; N18.9 Chronic kidney disease, unspecified; Z51.5 Encounter for palliative care; Z66 Do not resuscitate; Z79.01 Long term (current) use of anticoagulants
CPT/HCPCS: 36415; 71045; 80048; 80053; 80061; 83036; 83735; 84100; 84443; 84484; 85025; 85610; 85730; 93005; 93306; G0378; J7040